=== PATIENT | male | born 1955 | race Caucasian/White ===

== ENCOUNTER 2019-09-25 11:20 | Outpatient (NON) | payer OTHER, SELFPAY ==
[2019-09-27 08:03] LABS: SARS-CoV-2 RNA PCR Positive
== END 2019-09-25 11:21 ==
PROVIDERS: PCP Family Medicine; Visit Provider Physician Assistant
DX: R50.9 Fever, unspecified (principal); U07.1 COVID-19
CPT/HCPCS: 87635; C9803; U0003

== ENCOUNTER 2020-06-19 08:39 | Outpatient (CLI) | payer OTHER, SELFPAY ==
--- NOTE | ~2020-06-19 | US_ITS ---
EXAMINATION: US carotid duplex BI DATE: 06/19/2020 09:23 INDICATION: Vertigo, dizziness and giddiness TECHNIQUE: Grayscale, color Doppler, and pulsed Doppler images of the cervical carotid arteries were obtained. The degree of vessel stenosis is placed in one of the following categories: normal, <50%, 5 0-69%, >=70% but less than near-occlusion, near-occlusion, or total occlusion. Note that percent sten osis relative to normal distal artery lumen diameter is indirectly measured from velocity measurement s as described by Zack, et al. Radiology 2003; [id number]. COMPARISON: None. FINDINGS: RIGHT: The right common carotid artery (CCA) peak systolic velocity (PSV) is 109 cm/s. The right internal ca rotid artery (ICA) PSV is 126 cm/s. The right ICA end-diastolic velocity (EDV) is 24 cm/s. The right ICA/CCA PSV ratio is 1.2. Grayscale and color Doppler images yield an estimate of 50-69% diameter red uction from plaque in the ICA. The external carotid artery (ECA) PSV is 97 cm/s. There is antegrade f low in the right vertebral artery. LEFT: The left CCA PSV is 132 cm/s. The left ICA PSV is 81 cm/s. The left ICA EDV is 17 cm/s. The left ICA/ CCA PSV ratio is 0.6. Grayscale and color Doppler images yield an estimate of <50% diameter reduction from plaque in the ICA. The ECA PSV is 100 cm/s. There is antegrade flow in the left vertebral arter y. IMPRESSION: 1. 50-69% stenosis in the right internal carotid artery. 2. <50% stenosis in the left internal carotid artery. Reviewed, dictated and finalized at location A. MERCHANT
== END 2020-06-19 08:40 | disposition home or self-care (01) ==
PROVIDERS: PCP Family Medicine; Visit Provider Family Medicine
DX: R42 Dizziness and giddiness (principal); I10 Essential (primary) hypertension; I65.23 Occlusion and stenosis of bilateral carotid arteries
CPT/HCPCS: 93880

== ENCOUNTER → 2020-09-04 08:53 | Outpatient (CLI) | payer OTHER, SELFPAY ==
--- NOTE | ~2020-09-04 | XR_ITS ---
EXAMINATION: XR hand LT min 3V EXAM DATE: 09/04/2020 09:54 INDICATION: M79.642 - Pain in left hand. Shooting pain and swelling in 2nd, 3rd, and 4th digits of L T hand x 2 months. no inj. TECHNIQUE: Left hand frontal, lateral and oblique projections obtained and reviewed. There is no carmen or study for comparison. FINDINGS: Left metacarpal bones are unremarkable. There is severe triscaphe, moderate 1st carpometac arpal, 2nd and 3rd metacarpophalangeal joint primary osteoarthritis. Otherwise mild polyarticular pr imary osteoarthritis. There are no bony erosions identified. There are no acute fractures or dislocat ions identified. There is no subcutaneous gas. The soft tissue is unremarkable. There are no radi opaque foreign bodies. IMPRESSION: Polyarticular osteoarthritis. Reviewed, dictated and finalized at location A.
== END ==
PROVIDERS: Visit Provider Physician Assistant
DX: M19.042 Primary osteoarthritis, left hand (principal)
CPT/HCPCS: 73130

== ENCOUNTER 2020-09-11 07:30 | Outpatient (CLI) | payer OTHER, SELFPAY ==
--- NOTE | 2020-09-25 19:13 | WPDHOMESLEEP ---
Sleep Study - Home Unattended Date of Study: 09/11/20 Ordering Provider: Tri Estrada MD Interpreting Provider: Tri Estrada MD Home Sleep Study Type: Apnea Link Air Height: 1.73 m Weight: 94.347 kg Body Mass Index: 31.6 Neck Circumference (inches): 17 [place]: 0 Reason for Sleep Study Snoring, non restorative sleep Sleep History J Carlos Cortes is a 65-year-old manwith a history of poor quality sleep. He is on treatment for depression which is under good control. He does not awaken feeling refreshed. He is told by others that he snores at night. His [place] is 0 and he does not always feel tired in the day but he usually does not feel good when he wakes up. He had COVID in August and lost 30 lb. He has gained a little bit of that back 10 lb and feels better not being as heavy. His snoring does not bother him. He denies waking at night with heartburn, belching or coughing. He does not awaken from sleep feeling short of breath. He constantly has trouble sleeping if he has a cold. He does not wake up gasping for breath at night. He does not have breathing problems at night observed by others. He does not sweat excessively at night. He rarely notices his heart pounding or beating irregularly at night. He does not fall asleep during the day, does not fall asleep involuntarily or while driving. He does not have loss of muscle tone with strong emotion. He rarely has daytime difficulties due to excessive sleepiness. He does not feel paralyzed on waking or falling asleep. He does not have vivid dreamlike scenes upon awakening or falling asleep. He does not feel afraid to go to sleep. He does not have nightmares. He does not remember his dream content. He rarely has racing thoughts. He frequently feels sad or depressed. He rarely has anxiety, rarely worries about things. He does not have muscular tension. He rarely notices parts of his body jerking. He does not kick at night. He rarely has crawling and aching feelings in his legs, rarely has any kind of leg pain at night. He does not have morning jaw pain. He does not grind his teeth during sleep. He is not bothered by pain during the day, is not awakened by pain at night. He rarely wakes up feeling stiff in the morning, rarely has sore achy muscles in the morning and really wakes up with pain in the spine. He has stomach problems, depression. Normal bedtime is not fixed. He goes to bed later on the weekend, 9:00 p.m.. It takes an hour and a half to fall asleep. He wakes up at 5 in the morning. He estimates gaining 4 or 5 hours of sleep overnight. He does not take naps. A short nap is not refreshing. He feels drowsy for 3 hours or longer after waking. He feels better in the afternoon compared to the morning. He rarely awakens feeling refreshed. [facility] Past Medical History Medical History Essential (primary) hypertension Major depressive disorder, single episode, unspecified Onychomycosis Tinea corporis Type 2 diabetes mellitus without complications Family History Family History Father Hypertension Family history of diabetes mellitus in first degree relative Family history of coronary artery disease Sibling Hypertension Family history of diabetes mellitus in first degree relative Social History Social History Social History: Single Smoking status: Never smoker Second hand tobacco smoke exposure: No Alcohol intake: never Substance use: never Substance use type: does not use Gender identity (if verbalized by the patient): Male Medications Home Medications Medication Instructions Recorded Confirmed Type atorvastatin 20 mg tablet 20 mg PO DAILY #90 tablet 02/17/20 09/04/20 Rx buspirone 5 mg tablet 5 mg PO BID #180 tablet 02/17/20 09/04/20 Rx famotidine 20 mg t
[2020-09-25 20:16] VITALS: BMI 31.6
== END 2020-09-11 07:31 | disposition home or self-care (01) ==
LOC: ANHCSM 07:30
PROVIDERS: Visit Provider Internal Medicine Critical Care Medicine
DX: G47.33 Obstructive sleep apnea (adult) (pediatric) (principal); G47.10 Hypersomnia, unspecified; I10 Essential (primary) hypertension; E11.9 Type 2 diabetes mellitus without complications; E66.9 Obesity, unspecified; Z68.31 Body mass index [BMI] 31.0-31.9, adult; Z79.899 Other long term (current) drug therapy
CPT/HCPCS: 95806

== ENCOUNTER 2020-12-24 09:01 | Outpatient (CLI) | payer OTHER, SELFPAY ==
--- NOTE | 2021-01-25 11:58 | WPDSLEEPSTUD ---
Sleep Study Date of Study: 12/24/20 Ordering Provider: Mateo Basurto APRN Interpreting Physician: Tri Estrada MD Sleep Study Type: CPAP Titration Height: 1.73 m Weight: 90.265 kg Body Mass Index: 30.2 Neck Circumference (inches): 16 [place]: 0 Reason for Sleep Study Home sleep test September 11, 2020 using ApneaLink shows at least mild obstructive sleep apnea, apnea-hypopnea index of 13, a mixture of central apneas 55% of the total and obstructive apneas 45% of the total with snoring and desaturation 83%. He has a medical comorbidity of hypertension, and presents for a CPAP titration in the sleep lab. Sleep History J Carlos Cortes is a 65-year-old manwith a history of poor quality sleep. He is on treatment for depression which is under good control. He does not awaken feeling refreshed. He is told by others that he snores at night. His [place] is 0 and he does not always feel tired in the day but he usually does not feel good when he wakes up. He had COVID in August and lost 30 lb. He has gained a little bit of that back 10 lb and feels better not being as heavy. His snoring does not bother him. He denies waking at night with heartburn, belching or coughing. He does not awaken from sleep feeling short of breath. He constantly has trouble sleeping if he has a cold. He does not wake up gasping for breath at night. He does not have breathing problems at night observed by others. He does not sweat excessively at night. He rarely notices his heart pounding or beating irregularly at night. He does not fall asleep during the day, does not fall asleep involuntarily or while driving. He does not have loss of muscle tone with strong emotion. He rarely has daytime difficulties due to excessive sleepiness. He does not feel paralyzed on waking or falling asleep. He does not have vivid dreamlike scenes upon awakening or falling asleep. He does not feel afraid to go to sleep. He does not have nightmares. He does not remember his dream content. He rarely has racing thoughts. He frequently feels sad or depressed. He rarely has anxiety, rarely worries about things. He does not have muscular tension. He rarely notices parts of his body jerking. He does not kick at night. He rarely has crawling and aching feelings in his legs, rarely has any kind of leg pain at night. He does not have morning jaw pain. He does not grind his teeth during sleep. He is not bothered by pain during the day, is not awakened by pain at night. He rarely wakes up feeling stiff in the morning, rarely has sore achy muscles in the morning and really wakes up with pain in the spine. He has stomach problems, depression. Normal bedtime is not fixed. He goes to bed later on the weekend, 9:00 p.m.. It takes an hour and a half to fall asleep. He wakes up at 5 in the morning. He estimates gaining 4 or 5 hours of sleep overnight. He does not take naps. A short nap is not refreshing. He feels drowsy for 3 hours or longer after waking. He feels better in the afternoon compared to the morning. He rarely awakens feeling refreshed. [facility] Past Medical History Medical History Essential (primary) hypertension Major depressive disorder, single episode, unspecified Onychomycosis Tinea corporis Type 2 diabetes mellitus without complications Family History Family History Father Hypertension Family history of diabetes mellitus in first degree relative Family history of coronary artery disease Sibling Hypertension Family history of diabetes mellitus in first degree relative Social History Social History Social History: Single Smoking status: Never smoker Second hand tobacco smoke exposure: No Alcohol intake: never Substance use: never Substance use type: does not use Gender identity (if verb
[2021-01-25 11:59] VITALS: BMI 30.2
== END 2020-12-25 06:41 | disposition home or self-care (01) ==
LOC: ANHCSM 09:06
PROVIDERS: Visit Provider Nurse Practitioner Family
DX: G47.33 Obstructive sleep apnea (adult) (pediatric) (principal); G25.81 Restless legs syndrome
CPT/HCPCS: 95811

== ENCOUNTER → 2022-11-07 09:08 | Outpatient (CLI) | payer MEDICARE, SELFPAY ==
--- NOTE | ~2022-11-07 | XR_ITS ---
XR knee RT 3V 11/07/2022 09:51 Indication: Right knee pain Procedure: 3 views right knee Comparison: No prior studies for comparison. Findings: No fracture, subluxation or dislocation. No significant joint effusion. No foreign bodies. There is extensive atherosclerosis. No joint space narrowing. Impression: 1: No significant bone or joint abnormality. Reviewed, dictated and finalized at location [] Impression: 1: No significant bone or joint abnormality.
--- NOTE | ~2022-11-07 | XR_ITS ---
XR knee LT 3V 11/07/2022 09:51 INDICATION: Left knee pain PROCEDURE: 3 views left knee COMPARISON: No prior studies for comparison. FINDINGS: Fracture, dislocation or subluxation is not identified. No significant joint effusion. No j oint space narrowing. The soft tissues appear within normal limits. No foreign bodies are identified . There is atherosclerosis. IMPRESSION: 1: NO ACUTE BONE OR JOINT ABNORMALITY IDENTIFIED. Reviewed, dictated and finalized at location []
== END ==
PROVIDERS: PCP Physician Assistant; Visit Provider Physician Assistant
DX: M25.561 Pain in right knee (principal); M25.562 Pain in left knee
CPT/HCPCS: 73562

== ENCOUNTER 2023-01-04 14:30 | Outpatient (RCR) | payer MEDICARE, SELFPAY | END 2023-03-06 13:25 | disposition home or self-care (01) | LOC: ANHDMC 14:30 | PROVIDERS: PCP Physician Assistant; Visit Provider Physician Assistant | DX: E11.65 Type 2 diabetes mellitus with hyperglycemia (principal); Z71.89 Other specified counseling | CPT/HCPCS: G0109 ==

== ENCOUNTER 2023-01-31 15:25 | Outpatient (CLI) | payer MEDICARE, SELFPAY ==
--- NOTE | ~2023-01-31 | CT_ITS ---
EXAMINATION: CT abdomen pelvis w con DATE: 01/31/2023 16:02 INDICATION: Right lower quadrant abdominal pain TECHNIQUE: Computed tomography (CT) of the abdomen and pelvis was performed with 100 mL Omnipaque-350 intravenous contrast. Automated exposure control and iterative reconstruction technique were employe d. The dose-length product was 1301.68 mGy-cm. COMPARISON: None FINDINGS: Large sliding-type hiatal hernia which includes a majority the stomach. There is compressive atelecta sis in the immediately adjacent medial aspect of the bilateral lower lobes. There is additional right middle lobe atelectasis along the anterior aspect of the right hemidiaphragm. No pneumonia, pulmonar y edema, pleural effusion or pneumothorax. Heart size is normal. No pericardial effusion. Calcified g allstone at the neck of the otherwise normal-appearing gallbladder. A couple of centimeters low atten uation subcentimeter cysts in the left hepatic lobe. Spleen, pancreas and bilateral adrenal glands ar e normal. Small cysts at the upper poles of both kidneys, the largest on the right measuring 1.5 cm. There are couple appendicoliths at the proximal aspect of the dilated appendix with prominent periapp endiceal inflammatory stranding consistent with acute appendicitis. There appear to be defects in the enhancing wall of the appendix both at the base where there is a small amount of extraluminal gas in the surrounding fat as well as near the tip of the appendix where there is an additional small amoun t of extraluminal gas. No organized abscess. There are a few scattered colonic diverticula without ad jacent inflammatory stranding to suggest diverticulitis. No bowel obstruction. Bladder is normal. No pathologically enlarged abdominal or pelvic lymphadenopathy. Moderate lumbar and lower thoracic spond ylosis with likely developmental anterior fusion at T11-T12. IMPRESSION: 1. Ruptured acute appendicitis with appendicolith at the base of the appendix and small amount of ext raluminal gas apparent mural defects at the base and tip of the appendix. No organized abscess. Dr. Sunitha mejia discussed these findings with Dr. Heck at 4:15 PM. 2. Large sliding-type hiatal hernia. 3. Cholelithiasis. Reviewed, dictated and finalized at location A. IMPRESSION: 1. Ruptured acute appendicitis with appendicolith at the base of the appendix a nd small amount of extraluminal gas apparent mural defects at the base and tip of the appendix. No organized abscess. Dr. Escamilla discussed these findings wi th Dr. Heck at 4:15 PM. 2. Large sliding-type hiatal hernia. 3. Cholelithiasis.
== END 2023-01-31 15:26 | disposition home or self-care (01) ==
PROVIDERS: PCP Family Medicine; Visit Provider Family Medicine
DX: K80.20 Calculus of gallbladder without cholecystitis without obstruction (principal); K44.9 Diaphragmatic hernia without obstruction or gangrene; K35.32 Acute appendicitis with perforation, localized peritonitis, and gangrene, without abscess
CPT/HCPCS: 74177; Q9967

== ENCOUNTER 2023-01-31 16:36 | Inpatient (IN) | payer MEDICARE, SELFPAY ==
--- NOTE | ~2023-01-31 | XR_ITS ---
Portable chest x-ray Comparison: None Clinical History: Hypoxia Findings: Small bilateral pleural effusions are present with probable mild bibasilar pulmonary edema . Calcified left hilar lymph nodes are present. Cardiomediastinal silhouette is stable. Bones and sof t tissues are unremarkable. Impression: Small bilateral pleural effusions with probable mild bibasilar pulmonary edema. Calcified left hilar lymph nodes. Reviewed, dictated and finalized at [facility]. Impression: Small bilateral pleural effusions with probable mild bibasilar pulmonary edema. Calcified left hilar lymph nodes.
[2023-01-31 16:52] VITALS: BP 160/90; PULSE 113; RESP 18; TEMP 36.7; O2SAT 97
--- NOTE | 2023-01-31 17:23 | ED.ABDPAIN ---
HPI - Abdominal Pain General Chief Complaint: Abdominal Pain <KRISTINA Ramsey Last Filed: 01/31/23 18:27> Stated Complaint: perforated appendectomy from CT <KRISTINA Ramsey Last Filed: 01/31/23 18:27> Time Seen by Provider: 01/31/23 17:09 <KRISTINA Ramsey Last Filed: 01/31/23 18:27> Source: patient <KRISTINA Ramsey Last Filed: 01/31/23 18:27> Mode of arrival: ambulatory <KRISTINA Ramsey Last Filed: 01/31/23 18:27> Limitations: no limitations <KRISTINA Ramsey Last Filed: 01/31/23 18:27> History of Present Illness HPI narrative: This is a 67-year-old male that presents to the emergency department for abdominal pain ongoing over the last 4 days. Associated with fevers, nausea and diarrhea. He was seen by his primary provider today who ordered an outpatient CT scan. This showed acute appendicitis. Patient denies vomiting or dysuria. <KRISTINA Ramsey Last Filed: 01/31/23 18:27> Related Data Home Medications: Home Medications Medication Instructions Recorded Confirmed buspirone 7.5 mg tablet 7.5 mg PO TID 01/31/23 01/31/23 famotidine 20 mg tablet (Pepcid) 20 mg PO QHS 01/31/23 01/31/23 gabapentin 300 mg capsule 1,200 mg PO QHS 01/31/23 01/31/23 lisinopril 10 mg tablet 10 mg PO DAILY 01/31/23 01/31/23 melatonin 10 mg tablet 10 mg PO HS 01/31/23 01/31/23 omeprazole 20 mg capsule,delayed 20 mg PO DAILY 01/31/23 01/31/23 release ropinirole 2 mg tablet 2 mg PO QHS 01/31/23 01/31/23 sertraline 100 mg tablet 150 mg PO DAILY 01/31/23 01/31/23 trazodone 50 mg tablet 25 mg PO QHS 01/31/23 01/31/23 <KRISTINA Ramsey Last Filed: 01/31/23 18:27> Allergies/Adverse Reactions: Allergies Allergy/AdvReac Type Severity Reaction Status Date / Time No Known Allergies Allergy Verified 01/31/23 16:36 <Radha Gaines PA-C - Last Filed: 01/31/23 18:27> Review of Systems Review of Systems: CONSTITUTIONAL: Denies fever GASTROINTESTINAL: Reports abdominal pain, nausea and diarrhea. Denies vomiting GENITOURINARY: Denies dysuria <Radha Gaines PA-C - Last Filed: 01/31/23 18:27> All systems reviewed & are unremarkable except as noted in HPI and below <Radha Gaines PA-C - Last Filed: 01/31/23 18:27> [facility] Past Medical History Medical History: Medical History (Updated 01/31/23 @ 19:48 by Mary Kate Jane PA-C) Anxiety Essential (primary) hypertension Major depressive disorder, single episode, unspecified Mixed hyperlipidemia Obesity Obstructive sleep apnea (11/2020) Restless legs syndrome Type 2 diabetes mellitus without complications <Radha Gaines PA-C - Last Filed: 01/31/23 18:27> Surgical History Surgical History: Surgical History No history of previous surgery <Radha Gaines PA-C - Last Filed: 01/31/23 18:27> Family History Family History: Family History Father Hypertension Family history of diabetes mellitus in first degree relative Family history of coronary artery disease Sibling Hypertension Family history of diabetes mellitus in first degree relative <Radha Gaines PA-C - Last Filed: 01/31/23 18:27> Social History Social History: Social History (Updated 01/31/23 @ 19:46 by Mary Kate Jane PA-C) Social History: Surrogate medical decision maker: Angelic Alvarez, sibling. Code status: Full code. Smoking status: Never smoker Second hand tobacco smoke exposure: No Alcohol intake: former Alcohol use details: No alcohol in the last 10 to 15 years. Substance use: never Substance use type: does not use Lack of Transportation: No Lack of Food: Sometimes True Current Housing: I Have Housing Concerned About Future Housing: No Difficulty Paying Gas/Electric Bills: YES Difficulty Paying for Meds: YES Currently Une
[2023-01-31 17:36] VITALS: BP 154/80; PULSE 76; RESP 18; TEMP 37.1; O2SAT 96
[2023-01-31 17:49] LABS: Basophils Absolute Auto 0.1 K/mm3 (0.0-0.1); Basophils Percent Auto 0.3 % (0.2-1.2); Eosinophils Absolute Auto 0.1 K/mm3 (0-0.3); Eosinophils Percent Auto 0.4 % (0-4.4); Hematocrit 43.1 % (42.0-52.0); Hemoglobin 14.3 g/dL (14.0-18.0); Immature Granulocyte Absolute 0.07 K/mm3 (0.00-0.031); Immature Granulocyte Percent A 0.5 % (0-0.5); Lymphocytes Absolute Auto 1.52 K/mm3 (0.9-3.2); Lymphocytes Percent Auto 9.9 % (18.3-44.2); Mean Corpuscular HGB Conc 33.2 g/dl (32-36); Mean Corpuscular Hemoglobin 30.2 pg (26-34); Mean Corpuscular Volume 91.1 fl (80-100); Mean Platelet Volume 10.2 fl (7.4-10.4); Monocytes Absolute Auto 1.2 K/mm3 (0.1-0.6); Monocytes Percent Auto 7.6 % (2.6-8.5); Neutrophils Absolute Auto 12.5 K/mm3 (1.3-6.7); Neutrophils Percent Auto 81.3 % (45.5-73.1); Platelet Count Result 277 k/mm3 (150-375); Red Blood Count 4.73 M/mm3 (4.6-6.20); Red Cell Distribution Width 13.5 % (11.5-14.5); White Blood Count 15.4 K/mm3 (4.5-10.0)
[2023-01-31] MEDS: SODIUM CHLORIDE 0.9% IV 1,000 ML 999 ML IV CONT (17:55)
[2023-01-31] MEDS: PIPERACILLN/TAZ 3.375GM/NS50ML 3.375 GM/50 ML BAG IVPB ×2 (17:56→23:28)
[2023-01-31 18:00] LABS: Alanine Aminotransferase 30 U/L (6-50); Albumin Level 4.6 g/dL (3.5-5.1); Alkaline Phosphatase 101 U/L (38-126); Anion Gap 15 mmol/L (8-16); Aspartate Amino Transferase 30 U/L (17-59); Bilirubin,Total 0.9 mg/dL (0.2-1.3); Blood Urea Nitrogen 19 mg/dL (9-20); Calcium 9.6 mg/dL (8.4-10.2); Carbon Dioxide 21 mmol/L (22-30); Chloride 99 mmol/L (98-107); Estimated CRCL calculation 70 ml/min; Estimated Glomerular Filt Rate > 60; Glucose 160 mg/dL (65-110); Lipase 36 U/L (23-300); Potassium 3.8 mmol/L (3.4-5.0); Sodium 135 mmol/L (137-145)
[2023-01-31 18:02] LABS: Lactic Acid Reflex 1.2 mmol/L (0.7-2.0)
--- NOTE | 2023-01-31 19:40 | PM.IMHP ---
H&P: HPI History of Present Illness Date/Time: 01/31/23 17:45 Chief Complaint: Perforated appendicitis. Narrative: This is a pleasant 67-year-old male with type 2 diabetes mellitus, hypertension, and anxiety who presented to the emergency department from Radiology after he was found to have evidence of perforated appendicitis on CT scan. The patient provides the following history. afternoon he has some mild abdominal discomfort after eating but that passed and he felt okay later that day and on Monday. Monday however the abdominal discomfort returned and has become increasingly worse since that time. He describes a sharp and shooting pain diffusely throughout the lower abdomen, worse with movement. Associated symptoms include a temperature up to 101?, nausea, and decreased appetite. He has only had a very small, hard bowel movement within the last few days which is unusual for him. He was sent for an outpatient CT which showed ruptured acute appendicitis with appendicolith with a small amount of extraluminal gas. ED provider spoke with the on-call surgeon at this time they requested he be admitted for IV antibiotics and bowel rest. At the time my evaluation he is feeling a bit better after receiving IV ibuprofen. Review of Systems Review of Systems: Twelve systems were reviewed. He has had a fever as above. No cold or flu symptoms. No chest pain or shortness of breath. He has not vomited. No blood or mucus in the stool. He believes his diabetes is well controlled. He admits that he does not check his glucose but maybe once a month. No blurry vision, polydipsia, or polyuria. Except as documented, all other systems were reviewed and are negative. [facility] Past Medical History Medical History (Updated 01/31/23 @ 19:48 by Mary Kate Jane PA-C) Anxiety Essential (primary) hypertension Major depressive disorder, single episode, unspecified Mixed hyperlipidemia Obesity Obstructive sleep apnea (11/2020) Restless legs syndrome Type 2 diabetes mellitus without complications Surgical History Surgical History No history of previous surgery Family History Family History Father Hypertension Family history of diabetes mellitus in first degree relative Family history of coronary artery disease Sibling Hypertension Family history of diabetes mellitus in first degree relative Social History Social History (Updated 01/31/23 @ 19:46 by Mary Kate Jane PA-C) Social History: Surrogate medical decision maker: Angelic Alvarez, sibling. Code status: Full code. Smoking status: Never smoker Second hand tobacco smoke exposure: No Alcohol intake: never Alcohol use details: No alcohol in the last 10 to 15 years. Substance use: never Substance use type: does not use Additional living arrangements comments: Single. Lives in his own home. Additional occupation/education comments: Retired. Meds Home Medications and Allergies Home Medications Medication Instructions Recorded Confirmed Type buspirone 5 mg tablet 5 mg PO BID #180 tabs 02/17/20 01/31/23 Rx ropinirole 0.5 mg tablet 0.5 mg PO .QHS #90 tabs 02/17/20 01/31/23 Rx sertraline 100 mg tablet 100 mg PO DAILY #90 tabs 02/17/20 01/31/23 Rx sertraline 50 mg tablet 50 mg PO DAILY #90 tabs 02/17/20 01/31/23 Rx blood sugar diagnostic (Blood #100 ea 04/26/21 01/31/23 Rx Glucose Test strips) famotidine 20 mg tablet (Pepcid) 20 mg PO DAILY #90 tabs 01/24/22 01/31/23 Rx metoprolol succinate 50 mg 25 mg PO DAILY #45 tabs 04/15/22 01/31/23 Rx tablet,extended release 24 hr gabapentin 300 mg capsule 1,200 mg PO DAILY #360 caps 05/06/22 01/31/23 Rx atorvastatin 20 mg tablet See Rx Instructions .Route 06/06/22 01/31/23 Rx .COMPLEX #90 tabs lisinopril 10 mg tablet See Rx Instructions .Route 08/15/22 01/31/23 Rx .COMPLEX #90 tabs glipizi
[2023-01-31 20:00] VITALS: BP 146/89; PULSE 95; RESP 18; TEMP 36.6; O2SAT 94
[2023-01-31] MEDS: IBUPROFEN IV 400 MG in SODIUM CHLORIDE 0.9% IV 100 ML 200 MG IVPB (20:36)
[2023-01-31] MEDS: SODIUM CHLORIDE 0.9% IV 1,000 ML 100 ML IV CONT (20:37)
--- NOTE | 2023-01-31 21:28 | ADMGEN ---
This patient, J Carlos Cortes, was admitted to 2 Medical Room 240-01. Patient/family oriented to hospital policies and general routines including ID bracelet, bed and alarms, visiting hours, pain management, procedures, bathroom and other care routines, personal items, smoking policy, room service/diet, and visiting hours. Information on how to activate the Rapid Response Team has been discussed. Patient/Family are encouraged to report perceived risks to care and to ask questions if they do not understand what they are told or what they should do.
[2023-01-31 21:50] LABS: Glucose Point of Care 120 mg/dl (65-105)
[2023-01-31 22:55] LABS: Appearance Urine Clear (Clear); Bilirubin Urine Negative (Negative); Blood Urine Negative (Negative); Color Urine Yellow (Yellow); Glucose Urine UA 3+ mg/dL (Negative); Ketones Urine 1+ mg/dL (Negative); Nitrate Urine Negative (Negative); Protein Urine 2+ mg/dL (Negative); Urobilinogen Urine 0.2 mg/dL (<2.0); pH Urine 5.5 (5.0-9.0)
[2023-01-31 22:56] LABS: Add Urine Microscopic? YES; Bacteria Urine None Seen /hpf; Leukocyte Esterase Ur Negative LEU/UL (Negative); Need Manual Microscopic Reviewed; Non Pathogenic Casts 0-2; RBC Urine 0-2 /hpf (0-2); Specific Grav Ur 1.085 (1.001-1.035); Squamous Epithelial Cell Urine None seen /hpf (Few); WBC Urine 0-5 /hpf
[2023-01-31] MEDS: DOXEPIN HCL 25 MG CAPSULE 100 MG PO (23:27)
[2023-01-31] MEDS: traZODone HCL 25 MG TABLET PO (23:28)
[2023-01-31] MEDS: GABAPENTIN 400 MG CAPSULE 1200 MG PO (23:28)
[2023-01-31] MEDS: MELATONIN 5 MG TABLET 10 MG PO (23:28)
[2023-01-31] MEDS: rOPINIRole HCL 1 MG TABLET 2 MG PO (23:28)
[2023-01-31] MEDS: FAMOTIDINE 20 MG TABLET PO (23:28)
[2023-02-01] VITALS (17 sets, daily range): BP systolic 111–144; BP diastolic 62–87; PULSE 80–102; RESP 16–28; TEMP 35.8–37.7; O2SAT 85–100
[2023-02-01] MEDS: PIPERACILLN/TAZ 3.375GM/NS50ML 3.375 GM/50 ML BAG IVPB ×3 (05:10→17:04)
[2023-02-01] MEDS: SODIUM CHLORIDE 0.9% IV 1,000 ML 100 ML IV CONT ×2 (05:11→22:00)
[2023-02-01] MEDS: HYDROcodone/acetaminophen (*CRX) 5-325 MG TABLET 1 TAB PO (05:13)
[2023-02-01 05:41] LABS: Basophils Percent Auto 0.3 % (0.2-1.2); Eosinophils Absolute Auto 0.2 K/mm3 (0-0.3); Eosinophils Percent Auto 1.7 % (0-4.4); Hematocrit 36.8 % (42.0-52.0); Immature Granulocyte Absolute 0.05 K/mm3 (0.00-0.031); Immature Granulocyte Percent A 0.5 % (0-0.5); Lymphocytes Absolute Auto 1.25 K/mm3 (0.9-3.2); Lymphocytes Percent Auto 11.3 % (18.3-44.2); Mean Corpuscular HGB Conc 32.6 g/dl (32-36); Mean Corpuscular Hemoglobin 30.2 pg (26-34); Mean Corpuscular Volume 92.5 fl (80-100); Mean Platelet Volume 9.9 fl (7.4-10.4); Monocytes Absolute Auto 0.9 K/mm3 (0.1-0.6); Monocytes Percent Auto 8.2 % (2.6-8.5); Neutrophils Absolute Auto 8.7 K/mm3 (1.3-6.7); Platelet Count Result 225 k/mm3 (150-375); Red Blood Count 3.98 M/mm3 (4.6-6.20); Red Cell Distribution Width 13.4 % (11.5-14.5); White Blood Count 11.1 K/mm3 (4.5-10.0)
[2023-02-01 05:55] LABS: Anion Gap 11 mmol/L (8-16); Blood Urea Nitrogen 18 mg/dL (9-20); Calcium 8.4 mg/dL (8.4-10.2); Carbon Dioxide 23 mmol/L (22-30); Chloride 105 mmol/L (98-107); Estimated CRCL calculation 77 ml/min; Estimated Glomerular Filt Rate > 60; Glucose 120 mg/dL (65-110); Magnesium 2.4 mg/dL (1.6-2.3); Potassium 3.9 mmol/L (3.4-5.0); Sodium 139 mmol/L (137-145)
--- NOTE | 2023-02-01 07:37 | PM.CNGS ---
Assessment and Plan Assessment and plan (1) Acute appendicitis: Qualifiers: Acute appendicitis type: with localized peritonitis Appendicitis abscess presence: without abscess Appendicitis gangrene presence: without gangrene Appendicitis perforation presence: with perforation Qualified Code(s): K35.32 - Acute appendicitis with perforation, localized peritonitis, and gangrene, without abscess Code(s): K35.80 - Unspecified acute appendicitis Status: Acute Assessment and Plan: I have reviewed the CT and discussed the findings with the patient. He has evidence of acute perforated appendicitis. I discussed that treatment options can include antibiotics alone verses antibiotics and surgery. Surgery can be more complicated in the setting of acute appendicitis especially when symptoms have been going on for 3-4 days already. Antibiotics can be successful but there are chances of recurrent appendicitis. Patient would like to proceed with surgery. I have recommended laparoscopic appendectomy, possible open. I discussed the procedure, risks, benefits, and alternatives. Questions were answered. Patient is on IV antibiotics and will continue these preoperatively. (2) Type 2 diabetes mellitus: Code(s): E11.9 - Type 2 diabetes mellitus without complications Status: Acute (3) Obstructive sleep apnea: Onset Date: 11/2020 Code(s): G47.33 - Obstructive sleep apnea (adult) (pediatric) Status: Acute (4) Essential (primary) hypertension: Code(s): I10 - Essential (primary) hypertension Status: Acute History of Present Illness Consult details Consult date: 02/01/23 Reason for consult: other (Acute appendicitis) Narrative: This is a 67-year-old man who I am asked to see for acute appendicitis. The patient presented to the emergency department yesterday with abdominal pain that started 3 days prior. He began experiencing lower abdominal pain all the way across his abdomen. He was experiencing fevers on Monday. He denies any nausea or vomiting. He has never had any symptoms like this in the past. He had presented to his primary care physician's office 1st [address] a [address] was done as an outpatient which showed evidence of acute perforated appendicitis. He was then referred over to the emergency department for further treatment. In the emergency department he was noted to have an elevated white blood count. Review of Systems Review of Systems: All systems reviewed & are unremarkable except as noted in HPI and below Eyes: Eyes: Denies change in vision ENT: Denies hearing loss, Denies neck pain and Denies sore throat Cardiovascular: Cardiovascular: Denies chest pain and Denies dyspnea Respiratory: Respiratory: Denies cough, Denies dyspnea and Denies wheezing Gastrointestinal: Gastrointestinal: Reports as per HPI Genitourinary: Genitourinary: Denies hematuria and Denies dysuria Musculoskeletal: Musculoskeletal: Denies arthralgias, Denies joint swelling and Denies neck pain Allergic/Immunologic: Allergic/Immunologic: Denies wheezing [facility] Past Medical History Medical History Anxiety Essential (primary) hypertension Major depressive disorder, single episode, unspecified Mixed hyperlipidemia Obesity Obstructive sleep apnea (11/2020) Restless legs syndrome Type 2 diabetes mellitus without complications Surgical History Surgical History No history of previous surgery Family History Family History Father Hypertension Family history of diabetes mellitus in first degree relative Family history of coronary artery disease Sibling Hypertension Family history of diabetes mellitus in first degree relative Social History Social History Social History
[2023-02-01 08:05] LABS: Glucose Point of Care 113 mg/dl (65-105)
[2023-02-01] MEDS: LACTATED RINGERS 1,000 ML 30 ML IV CONT ×2 (08:50→10:31)
--- NOTE | 2023-02-01 09:10 | WPDANESEPPF ---
Anes - Initial Pre Proc Eval Procedure: Operation Date: 02/01/23 09:30 Proposed Procedures p Laparoscopic Appendectomy - Perry Duenas DO Date/Time: 02/01/23 09:10 Surgeon: Callum Cline MD Pre Op Diagnosis: Acute Appendicitis Patient Data Age: 67 Gender: M Height: 1.73 m Weight: 97.8 kg Last Vital Signs Temp 36.6 C 02/01/23 08:00 Pulse 82 02/01/23 08:00 Resp 18 02/01/23 08:00 BP 128/62 02/01/23 08:00 Pulse Ox 95 02/01/23 08:00 O2 Del Method Room Air 01/31/23 22:00 Allergies Allergy/AdvReac Type Severity Reaction Status Date / Time No Known Allergies Allergy Verified 01/31/23 16:36 Home Medications Medication Instructions Recorded Confirmed Type metoprolol succinate 50 mg 25 mg PO DAILY #45 tabs 04/15/22 01/31/23 Rx tablet,extended release 24 hr glipizide 5 mg tablet, extended 5 mg PO DAILY #90 tabs 09/30/22 01/31/23 Rx release 24 hr dapagliflozin propanediol 10 mg 10 mg PO QAM #30 tabs 11/14/22 01/31/23 Rx tablet (Farxiga) meloxicam 15 mg tablet 15 mg PO DAILY #30 tabs 12/12/22 01/31/23 Rx doxepin 100 mg capsule 100 mg PO QHS #90 caps 01/19/23 01/31/23 Rx loratadine 10 mg tablet 10 mg PO DAILY #90 tabs 01/20/23 01/31/23 Rx montelukast 10 mg tablet 10 mg PO DAILY #90 tabs 01/20/23 01/31/23 Rx buspirone 7.5 mg tablet 7.5 mg PO TID 01/31/23 01/31/23 History famotidine 20 mg tablet (Pepcid) 20 mg PO QHS 01/31/23 01/31/23 History gabapentin 300 mg capsule 1,200 mg PO QHS 01/31/23 01/31/23 History lisinopril 10 mg tablet 10 mg PO DAILY 01/31/23 01/31/23 History melatonin 10 mg tablet 10 mg PO HS 01/31/23 01/31/23 History omeprazole 20 mg capsule,delayed 20 mg PO DAILY 01/31/23 01/31/23 History release ropinirole 2 mg tablet 2 mg PO QHS 01/31/23 01/31/23 History sertraline 100 mg tablet 150 mg PO DAILY 01/31/23 01/31/23 History trazodone 50 mg tablet 25 mg PO QHS 01/31/23 01/31/23 History Laboratory Tests 01/31/23 01/31/23 01/31/23 17:26 17:28 21:48 WBC 15.4 H K/mm3 (4.5-10.0) RBC 4.73 M/mm3 (4.6-6.20) Hgb 14.3 g/dL (14.0-18.0) Hct 43.1 % (42.0-52.0) MCV 91.1 fl (80-100) MCH 30.2 pg (26-34) MCHC 33.2 g/dl (32-36) RDW 13.5 % (11.5-14.5) Plt Count 277 k/mm3 (150-375) MPV 10.2 fl (7.4-10.4) Immature Gran % (Auto) 0.5 % (0-0.5) Neut % (Auto) 81.3 H % (45.5-73.1) Lymph % (Auto) 9.9 L % (18.3-44.2) [place] % (Auto) 7.6 % (2.6-8.5) Eos % (Auto) 0.4 % (0-4.4) Baso % (Auto) 0.3 % (0.2-1.2) Lymph # (Auto) 1.52 K/mm3 (0.9-3.2) [place] # (Auto) 1.2 H K/mm3 (0.1-0.6) Eos # (Auto) 0.1 K/mm3 (0-0.3) Baso # (Auto) 0.1 K/mm3 (0.0-0.1) Abs Immat Gran (auto) 0.07 H K/mm3 (0.00-0.031) Absolute Neuts (auto) 12.5 H K/mm3 (1.3-6.7) Absolute Nucleated RBC 0.0 K/mm3 (0.0-0.012) Nucleated RBC % 0.0 % (0.0-0.2) Sodium 135 L mmol/L (137-145) Potassium 3.8 mmol/L (3.4-5.0) Chloride 99 mmol/L (98-107) Carbon Dioxide 21 L mmol/L (22-30) Anion Gap 15 mmol/L (8-16) BUN 19 mg/dL (9-20) Creatinine 1.00 mg/dL (0.7-1.3) Estim Creat Clear Calc 70 ml/min Estimated GFR > 60 (59 - ) Glucose 160 H mg/dL (65-110) POC Capillary Glucose 120 H mg/dl (65-105) Lactic Acid 1.2 mmol/L (0.7-2.0) Calcium 9.6 mg/dL (8.4-10.2) Magnesium Total Bilirubin 0.9 mg/dL (0.2-1.3) AST 30 U/L (17-59) ALT 30 U/L (6-50) Alkaline Phosphatase 101 U/L (38-126) Total Protein 9.0 H g/dL (6.3-8.2) Albumin 4.6 g/dL (3.5-5.1) Lipase 36 U/L (23-300) Urine Color Urine Appearance
--- NOTE | 2023-02-01 09:13 | PM.IMPN ---
Progress Note: A&P Assessment and Plan (1) Acute appendicitis: Qualifiers: Acute appendicitis type: with localized peritonitis Appendicitis abscess presence: without abscess Appendicitis gangrene presence: without gangrene Appendicitis perforation presence: with perforation Qualified Code(s): K35.32 - Acute appendicitis with perforation, localized peritonitis, and gangrene, without abscess Code(s): K35.80 - Unspecified acute appendicitis Status: Acute Assessment and Plan: CT shows acute appendicitis with concerns for perforation Surgery consulted and rec's appreciated Started on IV zosyn POD 0 for lap appy with drain placement Continue with post-operative care (2) Type 2 diabetes mellitus: Code(s): E11.9 - Type 2 diabetes mellitus without complications Status: Acute Assessment and Plan: Hgb A1C 01/12/23 was 7.0 On empagliflozin and glipizide Ac/Hs accu checks SSI as needed (3) Essential (primary) hypertension: Code(s): I10 - Essential (primary) hypertension Status: Acute Assessment and Plan: Blood pressures reviewed and are stable SBP 130s-140s Home agents were resumed at admission (4) Mixed hyperlipidemia: Code(s): E78.2 - Mixed hyperlipidemia Status: Acute (5) Depression with anxiety: Code(s): F41.8 - Other specified anxiety disorders Status: Acute Assessment and Plan: Stable Continue home agents (6) Obstructive sleep apnea: Onset Date: 11/2020 Code(s): G47.33 - Obstructive sleep apnea (adult) (pediatric) Status: Acute Assessment and Plan: Autotitration home setting Cpap ordered (7) Urinary retention: Code(s): R33.9 - Retention of urine, unspecified Status: Acute Assessment and Plan: inability to void post-operatively failed intermittent straight cath Nixon catheter with coude placed Will give flomax as well Attempt void trial tomorrow Plan Recent lipid panel form 08/2022 with elevated LDL and low HDL. I do not see a statin ordered on home medications. Will inquire with patient. Subjective Date/time seen: 02/01/23 09:13 Interval history: HPI obtained from chart, This is a pleasant 67-year-old male with type 2 diabetes mellitus, hypertension, and anxiety who presented to the emergency department from Radiology after he was found to have evidence of perforated appendicitis on CT scan. The patient provides the following history. afternoon he has some mild abdominal discomfort after eating but that passed and he felt okay later that day and on Monday. Monday however the abdominal discomfort returned and has become increasingly worse since that time. He describes a sharp and shooting pain diffusely throughout the lower abdomen, worse with movement. Associated symptoms include a temperature up to 101?, nausea, and decreased appetite. He has only had a very small, hard bowel movement within the last few days which is unusual for him. He was sent for an outpatient CT which showed ruptured acute appendicitis with appendicolith with a small amount of extraluminal gas. ED provider spoke with the on-call surgeon at this time they requested he be admitted for IV antibiotics and bowel rest. At the time my evaluation he is feeling a bit better after receiving IV ibuprofen. 02/01: Patient seen this evening after his laparoscopic appendectomy. He is up in the chair and does not appear in any acute distress. He says that he does have some abdominal tenderness but he feels like his p.r.n. pain medications are helping. He denies nausea and is asking to drink water. Immediately postop he was unable to void. PACU was unable to straight cath him so a coude Nixon catheter was placed upon arrival to the medicine floor. Will keep Nixon for 24 hours and start him on Flomax. Plan to attempt a void trial the neck is 1-2 days. Abdominal incisions are well approximated and open
[2023-02-01] MEDS: IBUPROFEN IV 800 MG/200 ML 800 MG/200 ML BAG 400 MG IVPB (10:07)
--- NOTE | 2023-02-01 10:15 | W.PM.PROC2 ---
Procedure Note - Detailed Date of Procedure 02/01/23 Pre-op Diagnosis Acute Appendicitis Post-op Diagnosis Other (Perforated acute appendicitis with abscess) Procedure Performed 1. Laparoscopic appendectomy 2. Laparoscopic drainage of intra-abdominal abscess Surgeon Perry Duenas, DO Anesthesia General and Local (0.5% bupivicaine with epinephrine) Indications This is a 67-year-old man who presented to the emergency department yesterday with lower abdominal pain that started 3 days prior. He also began experiencing fevers 2 days prior to presentation. His pain continued to worsen, and he was seen by his PCP yesterday morning. A CT was done as an outpatient and this showed evidence of acute perforated appendicitis and he was then sent directly to the emergency department. He was started on IV Zosyn and was admitted to the hospital. Discussions were made with the patient about treatment options and decision was made to proceed with laparoscopic appendectomy, possible open. Findings Laparoscopic appendectomy was performed. The appendix appeared to be perforated and there was an abscess between the omentum, ascending colon, and appendix. The abscess was drained using the suction fine arts teacher. The base of the appendix appeared where the perforation was located. I was able to identify a small remnant of the base of the appendix and fire the stapler between this and the cecum. The appendix was removed and sent to the lab for pathology. I then irrigated the abdomen with 2 L of sterile saline. Decision was made to place a 19 round Gerald drain within the right lower quadrant. Description of Procedure Procedure as well as risks, benefits, and alternatives were explained to the patient. The patient agreed to proceed. Written consent was obtained and placed in chart prior to procedure. The patient was brought back to surgical suite. He was placed supine on operating table. Time-out was done to confirm the patient and procedure. The patient was then intubated by the Anesthesia Department. His abdomen was prepped and draped in sterile fashion using chlorhexidine prep. A 5 mm incision was made just to the left of the patient's umbilicus and a 5 mm Optiview trocar was advanced through the abdominal layers under direct visualization. Once inside the peritoneal cavity, carbon dioxide insufflation was used to create a pneumoperitoneum. The camera was inserted and the abdomen was inspected. No immediate abnormalities were identified. The patient was then placed in slight Trendelenburg position and rotated to the left. A 5 mm incision was made in the suprapubic region in midline and a 5 mm trocar was inserted under direct visualization. A 12 mm incision was made in the left lower quadrant and a 12 mm trocar was inserted under direct visualization. The right lower quadrant was carefully inspected. The cecum was identified and then this was traced back to the appendix. There was evidence of perforation at the base of the appendix and also evidence of abscess. The abscess was drained using a suction fine arts teacher. The appendix was identified and grasped at the mesoappendix and lifted anteriorly. Careful blunt dissection was carried out at the base of the appendix through the mesoappendix using a [place] grasper. An Endo-MICHELLE 45 mm blue load stapler was then advanced across the base of the appendix and clamped and fired. A white reload was then clamped across the mesoappendix and fired. This freed up our appendix completely. It was then placed in an EndoCatch bag and removed through the left lower quadrant port. The staple lines were then inspected. Hemostasis appeared adequate and the staple lines appeared secure. The area was then irrigated with sterile saline. The pelvis was then carefully inspected and irrigated with sterile saline as well and the remainder of the abdomen was carefully inspected. The patient was then flattened out in bed. One final inspection wa
[2023-02-01 10:57] LABS: Glucose Point of Care 160 mg/dl (65-105)
[2023-02-01] MEDS: PANTOPRAZOLE 40 MG TABLET PO (11:52)
[2023-02-01] MEDS: busPIRone HCL 2.5 MG TABLET 7.5 MG PO ×2 (11:52→17:03)
[2023-02-01] MEDS: SERTRALINE HCL 50 MG TABLET 150 MG PO (11:52)
[2023-02-01] MEDS: MELOXICAM 7.5 MG TABLET 15 MG PO (11:52)
[2023-02-01] MEDS: glipiZIDE XL 5 MG TABCR PO (11:53)
[2023-02-01] MEDS: METOPROLOL SUCCINATE EXT REL 25 MG TABCR PO (11:53)
[2023-02-01] MEDS: LORATADINE 10 MG TABLET PO (11:53)
[2023-02-01] MEDS: lisinopriL 10 MG TABLET PO (11:53)
[2023-02-01] MEDS: EMPAGLIFLOZIN 25 MG TABLET PO (11:53)
[2023-02-01] MEDS: MONTELUKAST SODIUM 10 MG TABLET PO (11:53)
[2023-02-01] MEDS: oxyCODONE HCL (*CRX) 5 MG TAB IR 10 MG PO ×2 (12:05→20:54)
[2023-02-01] MEDS: ENOXAPARIN 40 MG/0.4 ML SYRINGE SUB-Q (12:08)
[2023-02-01 12:31] LABS: Glucose Point of Care 169 mg/dl (65-105)
[2023-02-01] MEDS: LIDOCAINE HCL 2% GEL UROJET 10 ML PKG MUCOUS MEM (13:06)
[2023-02-01 17:19] LABS: Glucose Point of Care 213 mg/dl (65-105)
[2023-02-01] MEDS: INSULIN ASPART (*BKC) 100 UNITS/ML SUB-Q (17:25)
[2023-02-01] MEDS: FAMOTIDINE 20 MG TABLET PO (20:58)
[2023-02-01] MEDS: GABAPENTIN 400 MG CAPSULE 1200 MG PO (20:58)
[2023-02-01] MEDS: TAMSULOSIN HCL 0.4 MG CAPSULE PO (20:58)
[2023-02-01] MEDS: DOXEPIN HCL 25 MG CAPSULE 100 MG PO (20:59)
[2023-02-01] MEDS: MELATONIN 5 MG TABLET 10 MG PO (20:59)
[2023-02-01] MEDS: rOPINIRole HCL 1 MG TABLET 2 MG PO (20:59)
[2023-02-01] MEDS: traZODone HCL 25 MG TABLET PO (20:59)
[2023-02-01 21:50] LABS: Glucose Point of Care 161 mg/dl (65-105)
[2023-02-02] VITALS (11 sets, daily range): BP systolic 101–142; BP diastolic 62–70; PULSE 80–107; RESP 16–22; TEMP 36–36.6; O2SAT 90–97; BMI 33.2
[2023-02-02] MEDS: PIPERACILLN/TAZ 3.375GM/NS50ML 3.375 GM/50 ML BAG IVPB ×5 (00:06→23:58)
[2023-02-02] MEDS: oxyCODONE HCL (*CRX) 5 MG TAB IR 10 MG PO ×2 (04:27→09:01)
[2023-02-02 05:34] LABS: Hematocrit 32.1 % (42.0-52.0); Hemoglobin 10.2 g/dL (14.0-18.0); Mean Corpuscular HGB Conc 31.8 g/dl (32-36); Mean Corpuscular Hemoglobin 29.9 pg (26-34); Mean Corpuscular Volume 94.1 fl (80-100); Mean Platelet Volume 9.9 fl (7.4-10.4); Platelet Count Result 220 k/mm3 (150-375); Red Blood Count 3.41 M/mm3 (4.6-6.20); Red Cell Distribution Width 13.6 % (11.5-14.5); White Blood Count 11.8 K/mm3 (4.5-10.0)
[2023-02-02 05:45] LABS: Anion Gap 9 mmol/L (8-16); Blood Urea Nitrogen 16 mg/dL (9-20); Calcium 7.9 mg/dL (8.4-10.2); Carbon Dioxide 23 mmol/L (22-30); Chloride 106 mmol/L (98-107); Estimated CRCL calculation 70 ml/min; Estimated Glomerular Filt Rate > 60; Glucose 99 mg/dL (65-110); Potassium 4.3 mmol/L (3.4-5.0); Sodium 138 mmol/L (137-145)
--- NOTE | 2023-02-02 06:57 | PM.IMPN ---
Progress Note: A&P Assessment and Plan (1) Acute appendicitis: Qualifiers: Acute appendicitis type: with localized peritonitis Appendicitis abscess presence: without abscess Appendicitis gangrene presence: without gangrene Appendicitis perforation presence: with perforation Qualified Code(s): K35.32 - Acute appendicitis with perforation, localized peritonitis, and gangrene, without abscess Code(s): K35.80 - Unspecified acute appendicitis Status: Acute Assessment and Plan: CT shows acute appendicitis with concerns for perforation Surgery consulted and rec's appreciated Started on IV zosyn POD 1 for lap appy with drain placement Continue with post-operative care. Advance diet per surgery. Pain medications and bowel regimen ordered Patient is up to chair for meals IS ordered ANDER drain managed by surgery SCDs and Lovenox for DVT prophylaxis (2) Type 2 diabetes mellitus: Code(s): E11.9 - Type 2 diabetes mellitus without complications Status: Acute Assessment and Plan: Hgb A1C 01/12/23 was 7.0 On empagliflozin and glipizide Ac/Hs accu checks SSI as needed (3) Essential (primary) hypertension: Code(s): I10 - Essential (primary) hypertension Status: Acute Assessment and Plan: Blood pressures reviewed and are stable SBP 130s-140s Home agents were resumed at admission (4) Mixed hyperlipidemia: Code(s): E78.2 - Mixed hyperlipidemia Status: Acute Assessment and Plan: Lipid panel from 08/2022: Triglycerides 263 Total cholesterol 180 LDL 108 HDL 34 Looks like Atorvastatin was initially prescribed in 04/2022 but it does not appear to be an active med. Will discuss with patient today and re-start. Patient was under the understanding he was still taking this medication but it is not listed as an active home medication and looks like it was last prescribed in 04/2022. Will re-start. (5) Depression with anxiety: Code(s): F41.8 - Other specified anxiety disorders Status: Acute Assessment and Plan: Stable Continue home agents (6) Obstructive sleep apnea: Onset Date: 11/2020 Code(s): G47.33 - Obstructive sleep apnea (adult) (pediatric) Status: Acute Assessment and Plan: Autotitration home setting Cpap ordered (7) Urinary retention: Code(s): R33.9 - Retention of urine, unspecified Status: Acute Assessment and Plan: inability to void post-operatively failed intermittent straight cath Nixon catheter with coude placed Will give Flomax as well Attempt void trial tomorrow Plan Continue with post-operative care Await return of bowel function void trial Subjective Date/time seen: 02/02/23 06:57 Interval history: HPI obtained from chart, This is a pleasant 67-year-old male with type 2 diabetes mellitus, hypertension, and anxiety who presented to the emergency department from Radiology after he was found to have evidence of perforated appendicitis on CT scan. The patient provides the following history. afternoon he has some mild abdominal discomfort after eating but that passed and he felt okay later that day and on Monday. Monday however the abdominal discomfort returned and has become increasingly worse since that time. He describes a sharp and shooting pain diffusely throughout the lower abdomen, worse with movement. Associated symptoms include a temperature up to 101?, nausea, and decreased appetite. He has only had a very small, hard bowel movement within the last few days which is unusual for him. He was sent for an outpatient CT which showed ruptured acute appendicitis with appendicolith with a small amount of extraluminal gas. ED provider spoke with the on-call surgeon at this time they requested he be admitted for IV antibiotics and bowel rest. At the time my evaluation he is feeling a bit better after receiving IV ibuprofen. 02/01: Patient se
[2023-02-02 08:20] LABS: Glucose Point of Care 89 mg/dl (65-105)
[2023-02-02] MEDS: SERTRALINE HCL 50 MG TABLET 150 MG PO (09:02)
[2023-02-02] MEDS: busPIRone HCL 2.5 MG TABLET 7.5 MG PO ×3 (09:02→17:55)
[2023-02-02] MEDS: DOCUSATE SODIUM 100 MG CAPSULE PO ×2 (09:02→20:08)
[2023-02-02] MEDS: TAMSULOSIN HCL 0.4 MG CAPSULE PO (09:03)
[2023-02-02] MEDS: METOPROLOL SUCCINATE EXT REL 25 MG TABCR PO (09:03)
[2023-02-02] MEDS: PANTOPRAZOLE 40 MG TABLET PO (09:03)
[2023-02-02] MEDS: MONTELUKAST SODIUM 10 MG TABLET PO (09:03)
[2023-02-02] MEDS: LORATADINE 10 MG TABLET PO (09:03)
[2023-02-02] MEDS: MELOXICAM 7.5 MG TABLET 15 MG PO (09:03)
[2023-02-02] MEDS: glipiZIDE XL 5 MG TABCR PO (09:03)
[2023-02-02] MEDS: lisinopriL 10 MG TABLET PO (09:03)
[2023-02-02] MEDS: EMPAGLIFLOZIN 25 MG TABLET PO (09:03)
[2023-02-02] MEDS: SODIUM CHLORIDE 0.9% IV 1,000 ML 100 ML IV CONT ×2 (09:04→20:07)
[2023-02-02] MEDS: ENOXAPARIN 40 MG/0.4 ML SYRINGE SUB-Q (09:07)
--- NOTE | 2023-02-02 11:06 | PM.PNGS ---
Progress Note: A&P Assessment and Plan (1) Acute appendicitis: Qualifiers: Acute appendicitis type: with localized peritonitis Appendicitis abscess presence: with abscess Appendicitis gangrene presence: without gangrene Appendicitis perforation presence: with perforation Qualified Code(s): K35.33 - Acute appendicitis with perforation, localized peritonitis, and gangrene, with abscess Code(s): K35.80 - Unspecified acute appendicitis Status: Acute Assessment and Plan: Continue Zosyn. Advance to full liquids. Follow labs and drain output. (2) Urinary retention: Code(s): R33.9 - Retention of urine, unspecified Status: Acute Assessment and Plan: Nixon placed, voiding trial in a day or so. (3) Type 2 diabetes mellitus: Code(s): E11.9 - Type 2 diabetes mellitus without complications Status: Acute (4) Obstructive sleep apnea: Onset Date: 11/2020 Code(s): G47.33 - Obstructive sleep apnea (adult) (pediatric) Status: Acute (5) Essential (primary) hypertension: Code(s): I10 - Essential (primary) hypertension Status: Acute Subjective Subjective Date/Time Seen: 02/02/23 11:06 Interval history: Doing well on POD#1. tolerating clears. No bloating/nausea. Had urinary retention and Nixon placed. Minimal flatus. Pain controlled. No fevers. Exam GI: Inspection: incision (intact with glue) and other (ANDER serosanguinous) GI Palp: Yes Tenderness to palpation present (GI) (RLQ and incisional) Objective Data Vital Signs Vital Signs: Vital Signs - 24 hr 02/01/23 11:15 02/01/23 11:28 02/01/23 11:45 Temperature 36.4 C Pulse Rate 95 96 94 Respiratory Rate 19 21 H 20 Blood Pressure 141/84 H 141/87 H 133/76 Pulse Oximetry 95 95 93 Oxygen Delivery Nasal Cannula Nasal Cannula Oxygen Flow Rate 2 2 Fraction of Inspired Oxygen 02/01/23 12:00 02/01/23 12:30 02/01/23 13:30 Temperature 36.9 C 36.6 C 36.6 C Pulse Rate 94 94 100 Respiratory Rate 19 20 20 Blood Pressure 144/86 H 127/72 130/79 Pulse Oximetry 93 94 95 Oxygen Delivery Oxygen Flow Rate Fraction of Inspired Oxygen 02/01/23 20:00 02/01/23 22:00 02/01/23 22:05 Temperature 35.8 C L Pulse Rate 91 Respiratory Rate 16 Blood Pressure 111/64 Pulse Oximetry 93 85 L 93 Oxygen Delivery Room Air Nasal Cannula Oxygen Flow Rate 2 Fraction of Inspired Oxygen 21 28 02/02/23 00:00 02/02/23 05:30 02/02/23 07:49 Temperature 36.0 C L 36.1 C L Pulse Rate 87 82 Respiratory Rate 16 16 Blood Pressure 112/64 112/65 Pulse Oximetry 93 94 92 Oxygen Delivery Nasal Cannula Oxygen Flow Rate 2 Fraction of Inspired Oxygen 02/02/23 08:00 02/02/23 09:00 Temperature 36.4 C 36.6 C Pulse Rate 80 107 H Respiratory Rate 17 22 H Blood Pressure 118/62 142/70 H Pulse Oximetry 95 97 Oxygen Delivery Oxygen Flow Rate Fraction of Inspired Oxygen Intake/Output Intake/Output: Intake & Output 01/30/23 01/31/23 02/01/23 02/02/23 23:59 23:59 23:59 23:59 Intake Total 1204 5092 2918 Output Total 2215 1255 Balance 1204 2877 1663 Meds/Results Medications: Active Medications Generic Name Dose Route Start Last Admin Trade Name Freq PRN Reason Stop Dose Admin Acetaminophen 650 mg 01/31/23 19:53 Acetaminophen 325 Mg Tablet PO Q6H PRN Mild Pain (1-3) or Fever Buspirone HCl 7.5 mg 02/01/23 09:00 02/02/23 09:02 Buspirone Hcl 2.5 Mg Tablet PO 03/03/23 08:59 7.5 mg TID RUDDY Administration Dextrose 12.5 gm 01/31/23 19:53 Dextrose 50% 25 Gm/50 Ml Syringe IV PUSH PRN PRN Hypoglycemia Protocol Docusate Sodium 100 mg 02/02/23 09:00 02/02/23 09:02 Docusate Sodium 100 Mg Capsule PO 100 mg Q12HR RUDDY Administration Doxepin HCl 100 mg 01/31/23 22:50 02/01/23 20:59 Doxepin Hcl 25 Mg Capsule PO 03/03/23 22:49 100 mg QHS RUDDY Administration Empagliflozin 25 mg 02/01/23 09:00
[2023-02-02 12:20] LABS: Glucose Point of Care 130 mg/dl (65-105)
--- NOTE | 2023-02-02 12:51 | WPDANESPN ---
Anes - Prog Note Post-Op Date/Time: 02/02/23 12:51 Cardiovascular status: normal Respiratory status: normal Airway patency: baseline Mental status: baseline Post-Op hydration status: normal Vital Signs: Last Vital Signs Temp 36.4 C 02/02/23 12:02 Pulse 88 02/02/23 12:02 Resp 17 02/02/23 12:02 BP 105/66 02/02/23 12:02 Pulse Ox 93 02/02/23 12:02 O2 Del Method Nasal Cannula 02/02/23 07:49 O2 Flow Rate 2 02/02/23 07:49 FiO2 28 02/01/23 22:05 Pain Score (VAS): 07/08 I/O: Intake & Output 02/01/23 02/02/23 02/02/23 23:59 07:59 15:59 Intake Total 2812 900 2706 Output Total 1805 1255 Balance 1007 -908 2706 Laboratory Tests 02/02/23 04:50 02/02/23 04:50 02/01/23 02/01/23 02/02/23 17:10 21:45 04:50 WBC 11.8 H RBC 3.41 L Hgb 10.2 L Hct 32.1 L MCV 94.1 MCH 29.9 MCHC 31.8 L RDW 13.6 Plt Count 220 MPV 9.9 Sodium 138 Potassium 4.3 Chloride 106 Carbon Dioxide 23 Anion Gap 9 BUN 16 Creatinine 1.00 Estim Creat Clear Calc 70 Estimated GFR > 60 Glucose 99 POC Capillary Glucose 213 H 161 H Calcium 7.9 L 02/02/23 02/02/23 08:09 12:03 WBC RBC Hgb Hct MCV MCH MCHC RDW Plt Count MPV Sodium Potassium Chloride Carbon Dioxide Anion Gap BUN Creatinine Estim Creat Clear Calc Estimated GFR Glucose POC Capillary Glucose 89 130 H Calcium Microbiology 01/31/23 17:28 Blood Blood Culture - Preliminary 01/31/23 17:28 Blood Blood Culture - Preliminary Post-procedural complaints: none Patient Feedback: Patient satisfied with anesthetic care.
[2023-02-02 16:57] LABS: Glucose Point of Care 84 mg/dl (65-105)
[2023-02-02] MEDS: DOXEPIN HCL 25 MG CAPSULE 100 MG PO (20:08)
[2023-02-02] MEDS: oxyCODONE HCL (*CRX) 5 MG TAB IR PO (20:08)
[2023-02-02] MEDS: MELATONIN 5 MG TABLET 10 MG PO (20:08)
[2023-02-02] MEDS: rOPINIRole HCL 1 MG TABLET 2 MG PO (20:09)
[2023-02-02] MEDS: traZODone HCL 25 MG TABLET PO (20:09)
[2023-02-02] MEDS: FAMOTIDINE 20 MG TABLET PO (20:09)
[2023-02-02] MEDS: GABAPENTIN 400 MG CAPSULE 1200 MG PO (20:09)
[2023-02-02 22:47] LABS: Glucose Point of Care 90 mg/dl (65-105)
[2023-02-03] VITALS (16 sets, daily range): BP systolic 115–159; BP diastolic 66–77; PULSE 80–110; RESP 16–20; TEMP 36.1–36.6; O2SAT 93–100
--- NOTE | 2023-02-03 | ECHO_ITS ---
Patient Info Name: J Carlos Cortes Age: 67 years : 1955 Gender: Male Ht: 68 in Wt: 218 lbs BSA: 2.21 m2 HR: 88 bpm BP: 133 / 77 mmHg Heart Rhythm: Sinus Rhythm Technical Quality: Good Exam Date: 02/03/2023 1:50 PM Exam Location: [facility] Card Pulmonary Patient Status: Inpatient Admit Date: 02/02/2023 Staff Ordering Physician: Nat Santana APRN Sales Receptionist: Tarsha Holden RDCS Attending Provider: Callum Cline MD Referring Physician: Max ALICEA; Exam Type: CA echo doppler color flow Study Info Indications - pulmonary edema, bnp elevated Complete two-dimensional, color flow and Doppler transthoracic echocardiogram is performed. Summary 1. Complete two-dimensional, color flow and Doppler transthoracic echocardiogram is performed. 2. Left ventricular chamber dimension is normal. 3. Ventricular septum is sigmoid shaped. No LVOT obstruction. 4. Left ventricular systolic function is normal, estimated at 65-70%. 5. There is mild concentric increased left ventricular wall thickness. 6. The left ventricular diastolic function is abnormal. 7. E/e' 16 is elevated. 8. There is trace tricuspid valve regurgitation. 9. No pulmonary hypertension, estimated pulmonary arterial systolic pressure is 37 mmHg. 10. There is trivial pericardial effusion. Left Ventricle E/e' 16 is elevated. Ventricular septum is sigmoid shaped. No LVOT obstruction. Left ventricular chamber dimension is normal. Left ventricular systolic function is normal, estimated at 65-70%. There is mild concentric increased left ventricular wall thickness. The left ventricular diastolic function is abnormal. Right Ventricle Right ventricular systolic function is normal and with normal TAPSE 2.5 cm. Right ventricular chamber dimension is normal. Left Atria Left atrial chamber dimension is normal. Right Atria Right atrial chamber dimension is normal. Aortic Valve The aortic valve is trileaflet. There is no aortic valve stenosis. There is no aortic valve regurgitation. Pulmonic Valve There is no pulmonic regurgitation. Mitral Valve There is no mitral valve stenosis. There is no mitral valve regurgitation. Tricuspid Valve There is trace tricuspid valve regurgitation. No pulmonary hypertension, estimated pulmonary arterial systolic pressure is 37 mmHg. Pericardium/Pleural There is trivial pericardial effusion. Inferior Vena Cava Normal inferior vena cava with >50% collapse upon inspiration consistent with normal right atrial pressure, 5 mmHg. Aorta The aortic root size at the sinus of Valsalva is normal. Left Ventricular Outflow Tract Name Value Normal LVOT 2D LVOT Diameter 2.0 cm LVOT Doppler LVOT Peak Gradient 7 mmHg LVOT Mean Gradient 4 mmHg LVOT VTI 21 cm LVOT VTI/AV VTI Ratio 0.7 LVOT Stroke Volume 67 ml LVOT CO 6.3 l/min LVOT CI 2.9 l/min/m2 Pulmonic Valve Name Value Normal ---
[2023-02-03] MEDS: PIPERACILLN/TAZ 3.375GM/NS50ML 3.375 GM/50 ML BAG IVPB ×4 (05:04→23:03)
--- NOTE | 2023-02-03 05:15 | PC.NURSE ---
reviewed and agree with all charting and documentation by rabia Fulton.
[2023-02-03 05:26] LABS: Hematocrit 30.6 % (42.0-52.0); Mean Corpuscular HGB Conc 32.7 g/dl (32-36); Mean Corpuscular Hemoglobin 30.4 pg (26-34); Mean Platelet Volume 9.9 fl (7.4-10.4); Platelet Count Result 233 k/mm3 (150-375); Red Blood Count 3.29 M/mm3 (4.6-6.20); Red Cell Distribution Width 13.4 % (11.5-14.5); White Blood Count 13.8 K/mm3 (4.5-10.0)
[2023-02-03] MEDS: SODIUM CHLORIDE 0.9% IV 1,000 ML 100 ML IV CONT (05:37)
[2023-02-03 05:42] LABS: Anion Gap 7 mmol/L (8-16); Blood Urea Nitrogen 11 mg/dL (9-20); Calcium 7.6 mg/dL (8.4-10.2); Carbon Dioxide 21 mmol/L (22-30); Chloride 105 mmol/L (98-107); Estimated CRCL calculation 78 ml/min; Estimated Glomerular Filt Rate > 60; Glucose 72 mg/dL (65-110); Magnesium 2.2 mg/dL (1.6-2.3); Potassium 3.8 mmol/L (3.4-5.0); Sodium 133 mmol/L (137-145)
--- NOTE | 2023-02-03 06:44 | PM.IMPN ---
Progress Note: A&P Assessment and Plan (1) Acute appendicitis: Qualifiers: Acute appendicitis type: with localized peritonitis Appendicitis abscess presence: with abscess Appendicitis gangrene presence: without gangrene Appendicitis perforation presence: with perforation Qualified Code(s): K35.33 - Acute appendicitis with perforation, localized peritonitis, and gangrene, with abscess Code(s): K35.80 - Unspecified acute appendicitis Status: Acute Assessment and Plan: CT shows acute appendicitis with concerns for perforation Surgery consulted and rec's appreciated Started on IV zosyn POD 1 for lap appy with drain placement Continue with post-operative care. Advance diet per surgery. Pain medications and bowel regimen ordered Patient is up to chair for meals IS ordered, + Pep therapy ANDER drain managed by surgery SCDs and Lovenox for DVT prophylaxis (2) Type 2 diabetes mellitus: Code(s): E11.9 - Type 2 diabetes mellitus without complications Status: Acute Assessment and Plan: Hgb A1C 01/12/23 was 7.0 On empagliflozin and glipizide Ac/Hs accu checks SSI as needed (3) Essential (primary) hypertension: Code(s): I10 - Essential (primary) hypertension Status: Acute Assessment and Plan: Blood pressures reviewed and are stable SBP 130s-140s Home agents were resumed at admission (4) Mixed hyperlipidemia: Code(s): E78.2 - Mixed hyperlipidemia Status: Acute Assessment and Plan: Lipid panel from 08/2022: Triglycerides 263 Total cholesterol 180 LDL 108 HDL 34 Looks like Atorvastatin was initially prescribed in 04/2022 but it does not appear to be an active med. Will discuss with patient today and re-start. Patient was under the understanding he was still taking this medication but it is not listed as an active home medication and looks like it was last prescribed in 04/2022. Will re-start. (5) Depression with anxiety: Code(s): F41.8 - Other specified anxiety disorders Status: Acute Assessment and Plan: Stable Continue home agents (6) Obstructive sleep apnea: Onset Date: 11/2020 Code(s): G47.33 - Obstructive sleep apnea (adult) (pediatric) Status: Acute Assessment and Plan: Autotitration home setting Cpap ordered (7) Urinary retention: Code(s): R33.9 - Retention of urine, unspecified Status: Acute Assessment and Plan: inability to void post-operatively failed intermittent straight cath Nixon catheter with coude placed Will give Flomax as well Attempt void trial tomorrow 02/03 void trial successful and patient is voiding spontaneously Plan Continue with post-operative care Await return of bowel function XR to assess for atelectasis in setting of increasing WBC--shows bilateral pleural effusions and mild pulmonary edema. Now on full liquid diet. IVF stopped. Will give IV lasix x 2 doses today. Feeding:Full liquid diet Analgesia:Tylenol and oxy Thromboembolic prophylaxis: lovenox Ulcer prophylaxis: H2 elsie Glycemic control: N/a Bowel regimen: colace Lines: PIV Antibiotics:Zosyn, may need to escalate Subjective Date/time seen: 02/03/23 06:44 Interval history: HPI obtained from chart, This is a pleasant 67-year-old male with type 2 diabetes mellitus, hypertension, and anxiety who presented to the emergency department from Radiology after he was found to have evidence of perforated appendicitis on CT scan. The patient provides the following history. afternoon he has some mild abdominal discomfort after eating but that passed and he felt okay later that day and on Monday. Monday however the abdominal discomfort returned and has become increasingly worse since that time. He describes a sharp and shooting pain diffusely throughout the lower abdomen, worse with movement. Associated symptoms include a temperature up to 101?, nausea, an
[2023-02-03 08:13] LABS: Glucose Point of Care 76 mg/dl (65-105)
[2023-02-03] MEDS: busPIRone HCL 2.5 MG TABLET 7.5 MG PO ×3 (08:36→16:59)
[2023-02-03] MEDS: ATORVASTATIN 40 MG TABLET PO (08:36)
[2023-02-03] MEDS: lisinopriL 10 MG TABLET PO (08:38)
[2023-02-03] MEDS: LORATADINE 10 MG TABLET PO (08:38)
[2023-02-03] MEDS: ENOXAPARIN 40 MG/0.4 ML SYRINGE SUB-Q (08:38)
[2023-02-03] MEDS: MELOXICAM 7.5 MG TABLET 15 MG PO (08:38)
[2023-02-03] MEDS: SERTRALINE HCL 50 MG TABLET 150 MG PO (08:39)
[2023-02-03] MEDS: METOPROLOL SUCCINATE EXT REL 25 MG TABCR PO (08:39)
[2023-02-03] MEDS: PANTOPRAZOLE 40 MG TABLET PO (08:39)
[2023-02-03] MEDS: MONTELUKAST SODIUM 10 MG TABLET PO (08:39)
[2023-02-03] MEDS: TAMSULOSIN HCL 0.4 MG CAPSULE PO (08:40)
[2023-02-03] MEDS: ALBUTEROL SULFATE NEB 2.5 MG/3 ML INH INHALATION ×3 (09:27→20:28)
[2023-02-03] MEDS: oxyCODONE HCL (*CRX) 5 MG TAB IR 10 MG PO (09:53)
[2023-02-03 10:48] LABS: NT Pro B Type Natriuretic Pept 1120 pg/mL (19.9-100)
--- NOTE | 2023-02-03 12:01 | PM.PNGS ---
Progress Note: A&P Assessment and Plan (1) Acute appendicitis: Qualifiers: Acute appendicitis type: with localized peritonitis Appendicitis abscess presence: with abscess Appendicitis gangrene presence: without gangrene Appendicitis perforation presence: with perforation Qualified Code(s): K35.33 - Acute appendicitis with perforation, localized peritonitis, and gangrene, with abscess Code(s): K35.80 - Unspecified acute appendicitis Status: Acute Assessment and Plan: Continue Zosyn. Advance to regular diabetic diet. Follow labs and drain output. (2) Urinary retention: Code(s): R33.9 - Retention of urine, unspecified Status: Acute Assessment and Plan: Urinating without difficulty today (3) Type 2 diabetes mellitus: Code(s): E11.9 - Type 2 diabetes mellitus without complications Status: Acute (4) Obstructive sleep apnea: Onset Date: 11/2020 Code(s): G47.33 - Obstructive sleep apnea (adult) (pediatric) Status: Acute (5) Essential (primary) hypertension: Code(s): I10 - Essential (primary) hypertension Status: Acute Subjective Subjective Date/Time Seen: 02/03/23 12:01 Interval history: Slowly improving. Tolerating full liquids. Bowels moving. Pain still in lower abdomen but improving. No fevers. Exam GI: Inspection: incision (intact with glue) and other (ANDER serosanguinous) GI Palp: Yes Tenderness to palpation present (GI) (RLQ and incisional) Objective Data Vital Signs Vital Signs: Vital Signs - 24 hr 02/02/23 12:02 02/02/23 16:00 02/02/23 20:51 Temperature 36.4 C 36.4 C Pulse Rate 88 84 85 Respiratory Rate 17 17 20 Blood Pressure 105/66 110/62 Pulse Oximetry 93 93 90 Oxygen Delivery Nasal Cannula Oxygen Flow Rate 3 Fraction of Inspired Oxygen 32 02/02/23 20:30 02/03/23 00:34 02/03/23 04:52 Temperature 36.2 C L 36.1 C L 36.2 C L Pulse Rate 88 99 84 Respiratory Rate 16 16 18 Blood Pressure 121/67 133/73 115/66 Pulse Oximetry 93 93 97 Oxygen Delivery Oxygen Flow Rate Fraction of Inspired Oxygen 02/03/23 08:21 02/03/23 08:39 02/03/23 09:29 Temperature Pulse Rate 83 83 86 Respiratory Rate 18 Blood Pressure 133/77 Pulse Oximetry Oxygen Delivery Oxygen Flow Rate Fraction of Inspired Oxygen 02/03/23 09:32 02/03/23 09:38 02/03/23 08:34 Temperature Pulse Rate 86 88 Respiratory Rate 18 18 Blood Pressure Pulse Oximetry 98 98 Oxygen Delivery Nasal Cannula Nasal Cannula Oxygen Flow Rate 3 2 Fraction of Inspired Oxygen Intake/Output Intake/Output: Intake & Output 01/31/23 02/01/23 02/02/23 02/03/23 23:59 23:59 23:59 23:59 Intake Total 1204 5092 5778 1790 Output Total 5 2004 30 Balance 1204 2167 8973 1760 Meds/Results Medications: Active Medications Generic Name Dose Route Start Last Admin Trade Name Freq PRN Reason Stop Dose Admin Acetaminophen 650 mg 01/31/23 19:53 Acetaminophen 325 Mg Tablet PO Q6H PRN Mild Pain (1-3) or Fever Albuterol 2.5 mg 02/03/23 08:00 02/03/23 09:27 Albuterol Sulfate Neb 2.5 Mg/3 Ml Inh INHALATION 2.5 mg Q6HRT RUDDY Administration Atorvastatin Calcium 40 mg 02/03/23 09:00 02/03/23 08:36 Atorvastatin 40 Mg Tablet PO 40 mg DAILY RUDDY Administration Buspirone HCl 7.5 mg 02/01/23 09:00 02/03/23 08:36 Buspirone Hcl 2.5 Mg Tablet PO 03/03/23 08:59 7.5 mg TID RUDDY Administration Dextrose 12.5 gm 01/31/23 19:53 Dextrose 50% 25 Gm/50 Ml Syringe IV PUSH PRN PRN Hypoglycemia Protocol Docusate Sodium 100 mg 02/02/23 09:00 02/03/23 08:37 Docusate Sodium 100 Mg Capsule PO Not Given Q12HR RUDDY Doxepin HCl 100 mg 01/31/23 22:50 02/02/23 20:08 Doxepin Hcl 25 Mg Capsule PO 03/03/23 22:49 100 mg QHS RUDDY Administration Empagliflozin 25 mg 02/01/23 09:00 02/03/23 10:22 Empagliflozin 25 Mg Tablet PO 03/03/23 08:
[2023-02-03 12:13] LABS: Glucose Point of Care 96 mg/dl (65-105)
[2023-02-03] MEDS: FUROSEMIDE INJ 40 MG/4 ML VIAL IV PUSH (13:08)
[2023-02-03 16:54] LABS: Glucose Point of Care 116 mg/dl (65-105)
[2023-02-03] MEDS: GABAPENTIN 400 MG CAPSULE 1200 MG PO (20:11)
[2023-02-03] MEDS: rOPINIRole HCL 1 MG TABLET 2 MG PO (20:11)
[2023-02-03] MEDS: DOCUSATE SODIUM 100 MG CAPSULE PO (20:11)
[2023-02-03] MEDS: FAMOTIDINE 20 MG TABLET PO (20:11)
[2023-02-03] MEDS: traZODone HCL 25 MG TABLET PO (20:11)
[2023-02-03] MEDS: DOXEPIN HCL 25 MG CAPSULE 100 MG PO (20:11)
[2023-02-03] MEDS: MELATONIN 5 MG TABLET 10 MG PO (20:12)
[2023-02-03 20:47] LABS: Glucose Point of Care 135 mg/dl (65-105)
[2023-02-04] VITALS (13 sets, daily range): BP systolic 135–165; BP diastolic 77–83; PULSE 83–106; RESP 16–28; TEMP 36.2–37; O2SAT 94–97
[2023-02-04] MEDS: ALBUTEROL SULFATE NEB 2.5 MG/3 ML INH INHALATION ×3 (01:18→14:05)
[2023-02-04] MEDS: PIPERACILLN/TAZ 3.375GM/NS50ML 3.375 GM/50 ML BAG IVPB (05:06)
[2023-02-04 05:13] LABS: Hematocrit 30.6 % (42.0-52.0); Hemoglobin 10.1 g/dL (14.0-18.0); Mean Corpuscular Hemoglobin 30.2 pg (26-34); Mean Corpuscular Volume 91.6 fl (80-100); Mean Platelet Volume 9.9 fl (7.4-10.4); Platelet Count Result 246 k/mm3 (150-375); Red Blood Count 3.34 M/mm3 (4.6-6.20); Red Cell Distribution Width 13.3 % (11.5-14.5); White Blood Count 11.8 K/mm3 (4.5-10.0)
[2023-02-04 05:24] LABS: Anion Gap 9 mmol/L (8-16); Blood Urea Nitrogen 9 mg/dL (9-20); Calcium 8.1 mg/dL (8.4-10.2); Carbon Dioxide 24 mmol/L (22-30); Chloride 102 mmol/L (98-107); Estimated CRCL calculation 87 ml/min; Estimated Glomerular Filt Rate > 60; Glucose 114 mg/dL (65-110); Potassium 3.2 mmol/L (3.4-5.0); Sodium 135 mmol/L (137-145)
--- NOTE | 2023-02-04 06:57 | PM.IMPN ---
Progress Note: A&P Assessment and Plan (1) Acute appendicitis: Qualifiers: Acute appendicitis type: with localized peritonitis Appendicitis abscess presence: with abscess Appendicitis gangrene presence: without gangrene Appendicitis perforation presence: with perforation Qualified Code(s): K35.33 - Acute appendicitis with perforation, localized peritonitis, and gangrene, with abscess Code(s): K35.80 - Unspecified acute appendicitis Status: Acute Assessment and Plan: CT shows acute appendicitis with concerns for perforation Surgery consulted and rec's appreciated Started on IV zosyn. He is POD 3 from lap appy. Anticipate a total of 5-7 days of antibiotics after source control. Will de-escalate if okay with surgery. POD 3 for lap appy with drain placement DM diet Pain medications and bowel regimen ordered Patient is up to chair for meals IS ordered, + Pep therapy ANDER drain managed by surgery SCDs and Lovenox for DVT prophylaxis (2) Type 2 diabetes mellitus: Code(s): E11.9 - Type 2 diabetes mellitus without complications Status: Acute Assessment and Plan: Hgb A1C 01/12/23 was 7.0 On empagliflozin and glipizide Ac/Hs accu checks SSI as needed (3) Essential (primary) hypertension: Code(s): I10 - Essential (primary) hypertension Status: Acute Assessment and Plan: Blood pressures reviewed and are stable SBP 130s-140s Home agents were resumed at admission (4) Mixed hyperlipidemia: Code(s): E78.2 - Mixed hyperlipidemia Status: Acute Assessment and Plan: Lipid panel from 08/2022: Triglycerides 263 Total cholesterol 180 LDL 108 HDL 34 Looks like Atorvastatin was initially prescribed in 04/2022 but it does not appear to be an active med. Will discuss with patient today and re-start. Patient was under the understanding he was still taking this medication but it is not listed as an active home medication and looks like it was last prescribed in 04/2022. Will re-start. (5) Depression with anxiety: Code(s): F41.8 - Other specified anxiety disorders Status: Acute Assessment and Plan: Stable Continue home agents Has anxiety surrounding his discharge home. (6) Obstructive sleep apnea: Onset Date: 11/2020 Code(s): G47.33 - Obstructive sleep apnea (adult) (pediatric) Status: Acute Assessment and Plan: Autotitration home setting Cpap ordered (7) Urinary retention: Code(s): R33.9 - Retention of urine, unspecified Status: Acute Assessment and Plan: inability to void post-operatively failed intermittent straight cath Nixon catheter with coude placed Will give Flomax as well Attempt void trial tomorrow 02/03 void trial successful and patient is voiding spontaneously Plan Continue with post-operative care BM 02/03 XR to assess for atelectasis in setting of increasing WBC--shows bilateral pleural effusions and mild pulmonary edema. Now on full liquid diet. IVF stopped. Will give IV lasix x 2 doses today 02/02. WBC improves, no longer on oxygen. Pt had some concerns about his mobility since surgery. PT/OT consulted and they feel he is safe for home and does not need home health for therapy services. His is POD 3 from [facility]. Anticipate a total of 5-7 days of antibiotics after source control. Will de-escalate if okay with surgery. Possibly d/c today if okay with surgery? Feeding: DM diet Analgesia:Tylenol and oxy Thromboembolic prophylaxis: Lovenox Ulcer prophylaxis: H2 elsie Glycemic control: N/a Bowel regimen: Colace Lines: PIV Antibiotics:Zosyn Subjective Date/time seen: 02/04/23 06:57 Interval history: HPI obtained from chart, This is a pleasant 67-year-old male with type 2 diabetes mellitus, hypertension, and anxiety who presented to the emergency department from Radiology after he was found to have evidence of perforated appendicitis on
[2023-02-04] MEDS: ATORVASTATIN 40 MG TABLET PO (08:49)
[2023-02-04] MEDS: POTASSIUM CHLORIDE 20 MEQ ER TABLET 40 MEQ PO (08:49)
[2023-02-04] MEDS: busPIRone HCL 2.5 MG TABLET 7.5 MG PO ×3 (08:50→17:12)
[2023-02-04] MEDS: lisinopriL 10 MG TABLET PO (08:51)
[2023-02-04] MEDS: ENOXAPARIN 40 MG/0.4 ML SYRINGE SUB-Q (08:51)
[2023-02-04] MEDS: DOCUSATE SODIUM 100 MG CAPSULE PO (08:51)
[2023-02-04] MEDS: MELOXICAM 7.5 MG TABLET 15 MG PO (08:52)
[2023-02-04] MEDS: LORATADINE 10 MG TABLET PO (08:52)
[2023-02-04] MEDS: METOPROLOL SUCCINATE EXT REL 25 MG TABCR PO (08:52)
[2023-02-04] MEDS: MONTELUKAST SODIUM 10 MG TABLET PO (08:52)
[2023-02-04] MEDS: SERTRALINE HCL 50 MG TABLET 150 MG PO (08:53)
[2023-02-04] MEDS: PANTOPRAZOLE 40 MG TABLET PO (08:53)
[2023-02-04] MEDS: TAMSULOSIN HCL 0.4 MG CAPSULE PO (08:53)
[2023-02-04 08:57] LABS: Glucose Point of Care 119 mg/dl (65-105)
[2023-02-04 11:55] LABS: Glucose Point of Care 117 mg/dl (65-105)
--- NOTE | 2023-02-04 13:24 | PM.PNGS ---
Progress Note: A&P Assessment and Plan (1) Acute appendicitis: Qualifiers: Acute appendicitis type: with localized peritonitis Appendicitis abscess presence: with abscess Appendicitis gangrene presence: without gangrene Appendicitis perforation presence: with perforation Qualified Code(s): K35.33 - Acute appendicitis with perforation, localized peritonitis, and gangrene, with abscess Code(s): K35.80 - Unspecified acute appendicitis Status: Acute Assessment and Plan: Patient can be transitioned to oral antibiotics. We will plan on Cipro and Flagyl. He can be discharged from the hospital today with the drain in place given high output serous appearance of the fluid. He can return to the office next week to remove the drain. Teach drain care to before discharge. Subjective Subjective Date/Time Seen: 02/04/23 13:24 Interval history: Patient is doing well today. Tolerating regular diet. No fever. White blood cell count is down to 11,000. Abdominal drain output is serous but output is still over 50cc per day. Exam GI: Other: Abdomen is soft and nondistended. Laparoscopic port site incisions are well healed. No redness or drainage. ANDER drain output is nonpurulent and serous. Volume of output is [id number] per day. Objective Data Vital Signs Vital Signs: Vital Signs - 24 hr 02/03/23 14:22 02/03/23 14:31 02/03/23 16:00 Temperature 36.4 C Pulse Rate 98 99 Respiratory Rate 18 18 18 Blood Pressure 159/76 H Pulse Oximetry 100 Oxygen Delivery Oxygen Flow Rate 02/03/23 19:22 02/03/23 20:30 02/03/23 20:31 Temperature 36.6 C Pulse Rate 92 108 H Respiratory Rate 20 18 Blood Pressure 115/70 Pulse Oximetry 97 95 Oxygen Delivery Nasal Cannula Oxygen Flow Rate 2 02/03/23 20:41 02/04/23 00:00 02/04/23 01:19 Temperature 36.6 C Pulse Rate 110 H 89 83 Respiratory Rate 18 16 18 Blood Pressure 135/80 Pulse Oximetry 94 Oxygen Delivery Oxygen Flow Rate 02/04/23 04:00 02/04/23 08:06 02/04/23 08:08 Temperature 37.0 C Pulse Rate 91 87 Respiratory Rate 16 18 Blood Pressure 165/83 H Pulse Oximetry 96 97 Oxygen Delivery Nasal Cannula Oxygen Flow Rate 2 02/04/23 08:21 02/04/23 08:33 02/04/23 08:52 Temperature Pulse Rate 85 100 Respiratory Rate 18 Blood Pressure Pulse Oximetry 94 Oxygen Delivery Nasal Cannula Oxygen Flow Rate 1 02/04/23 08:54 02/04/23 08:40 02/04/23 10:28 Temperature 36.2 C L Pulse Rate 92 Respiratory Rate 28 H Blood Pressure 136/79 Pulse Oximetry 94 95 Oxygen Delivery Room Air Room Air Oxygen Flow Rate 02/04/23 09:02 Temperature Pulse Rate Respiratory Rate Blood Pressure Pulse Oximetry Oxygen Delivery Room Air Oxygen Flow Rate Intake/Output Intake/Output: Intake & Output 02/01/23 02/02/23 02/03/23 02/04/23 23:59 23:59 23:59 23:59 Intake Total 1247 7610 4486 93 Output Total 4260 7789 75 25 Balance 2872 5514 1571 710 Meds/Results Medications: Active Medications Generic Name Dose Route Start Last Admin Trade Name Freq PRN Reason Stop Dose Admin Acetaminophen 650 mg 01/31/23 19:53 Acetaminophen 325 Mg Tablet PO Q6H PRN Mild Pain (1-3) or Fever Albuterol 2.5 mg 02/03/23 08:00 02/04/23 08:05 Albuterol Sulfate Neb 2.5 Mg/3 Ml Inh INHALATION 2.5 mg Q6HRT RUDDY Administration Atorvastatin Calcium 40 mg 02/03/23 09:00 02/04/23 08:49 Atorvastatin 40 Mg Tablet PO 40 mg DAILY RUDDY Administration Buspirone HCl 7.5 mg 02/01/23 09:00 02/04/23 12:09 Buspirone Hcl 2.5 Mg Tablet PO 03/03/23 08:59 7.5 mg TID RUDDY Administration Ciprofloxacin 500 mg 02/04/23 21:00 Ciprofloxacin 500 Mg Tab PO Q12HR RUDDY Dextrose 12.5 gm 01/31/23 19:53 Dextrose 50% 25 Gm/50 Ml Syringe IV PUSH PRN PRN Hypoglycemia Protocol Docusate Sodium 100 mg 02/02/23 09:00 02/04/23 08:51 D
--- NOTE | 2023-02-04 13:46 | PM.DS ---
DS: Admitting Diagnosis Discharge Date 02/04/23 Admitting Diagnosis acute appendicitis with perforation DS: Discharge Diagnosis Discharge Diagnosis (1) Acute appendicitis: Qualifiers: Acute appendicitis type: with localized peritonitis Appendicitis abscess presence: with abscess Appendicitis gangrene presence: without gangrene Appendicitis perforation presence: with perforation Qualified Code(s): K35.33 - Acute appendicitis with perforation, localized peritonitis, and gangrene, with abscess Code(s): K35.80 - Unspecified acute appendicitis Status: Acute Assessment and Plan: CT shows acute appendicitis with concerns for perforation Surgery consulted and rec's appreciated Started on IV zosyn. He is POD 3 from lap appy. Anticipate a total of 5-7 days of antibiotics after source control. Will de-escalate if okay with surgery. POD 3 for lap appy with drain placement DM diet Pain medications and bowel regimen ordered Patient is up to chair for meals IS ordered, + Pep therapy ANDER drain managed by surgery SCDs and Lovenox for DVT prophylaxis (2) Type 2 diabetes mellitus: Code(s): E11.9 - Type 2 diabetes mellitus without complications Status: Acute Assessment and Plan: Hgb A1C 01/12/23 was 7.0 On empagliflozin and glipizide Ac/Hs accu checks SSI as needed (3) Essential (primary) hypertension: Code(s): I10 - Essential (primary) hypertension Status: Acute Assessment and Plan: Blood pressures reviewed and are stable SBP 130s-140s Home agents were resumed at admission (4) Mixed hyperlipidemia: Code(s): E78.2 - Mixed hyperlipidemia Status: Acute Assessment and Plan: Lipid panel from 08/2022: Triglycerides 263 Total cholesterol 180 LDL 108 HDL 34 Looks like Atorvastatin was initially prescribed in 04/2022 but it does not appear to be an active med. Will discuss with patient today and re-start. Patient was under the understanding he was still taking this medication but it is not listed as an active home medication and looks like it was last prescribed in 04/2022. Will re-start. (5) Depression with anxiety: Code(s): F41.8 - Other specified anxiety disorders Status: Acute Assessment and Plan: Stable Continue home agents Has anxiety surrounding his discharge home. (6) Obstructive sleep apnea: Onset Date: 11/2020 Code(s): G47.33 - Obstructive sleep apnea (adult) (pediatric) Status: Acute Assessment and Plan: Autotitration home setting Cpap ordered (7) Urinary retention: Code(s): R33.9 - Retention of urine, unspecified Status: Acute Assessment and Plan: inability to void post-operatively failed intermittent straight cath Nixon catheter with coude placed Will give Flomax as well Attempt void trial tomorrow 02/03 void trial successful and patient is voiding spontaneously Plan Continue with post-operative care BM 02/03 XR to assess for atelectasis in setting of increasing WBC--shows bilateral pleural effusions and mild pulmonary edema. Now on full liquid diet. IVF stopped. Will give IV lasix x 2 doses today 02/02. WBC improves, no longer on oxygen. Pt had some concerns about his mobility since surgery. PT/OT consulted and they feel he is safe for home and does not need home health for therapy services. His is POD 3 from [facility]. Anticipate a total of 5-7 days of antibiotics after source control. Will de-escalate if okay with surgery. Possibly d/c today if okay with surgery? Feeding: DM diet Analgesia:Tylenol and oxy Thromboembolic prophylaxis: Lovenox Ulcer prophylaxis: H2 elsie Glycemic control: N/a Bowel regimen: Colace Lines: PIV Antibiotics:Zosyn DS: Summary Hospital Course Hospital Course: HPI obtained from chart, This is a pleasant 67-year-old male with type 2 diabetes mellitus, hypertension, and anxiety who presented to the emergen
[2023-02-04] MEDS: metroNIDAZOLE 250 MG TABLET 500 MG PO (15:52)
[2023-02-04 16:51] LABS: Glucose Point of Care 149 mg/dl (65-105)
== END 2023-02-04 17:30 | disposition home or self-care (01) | DRG 340 ==
LOC: ANHED 18:24 → ANH2MED 20:41
PROVIDERS: Physician Assistant; Surgery; Admitting Provider Hospitalist; Emergency Provider Physician Assistant; PCP Family Medicine; Visit Provider Nurse Practitioner Acute Care
PROC: 0DTJ4ZZ Resection of Appendix, Percutaneous Endoscopic Approach (ICD-10-PCS; CPT 44970; principal; 2023-02-01 09:30)
DX: K35.33 Acute appendicitis with perforation, localized peritonitis, and gangrene, with abscess (principal); K38.1 Appendicular concretions; E11.9 Type 2 diabetes mellitus without complications; I10 Essential (primary) hypertension; E78.2 Mixed hyperlipidemia; F41.8 Other specified anxiety disorders; G47.33 Obstructive sleep apnea (adult) (pediatric); R33.9 Retention of urine, unspecified; G25.81 Restless legs syndrome; E66.9 Obesity, unspecified; Z68.33 Body mass index [BMI] 33.0-33.9, adult
CPT/HCPCS: 36415; 71045; 74177; 80048; 80053; 81001; 82948; 83605; 83690; 83735; 83880; 85025; 85027; 87040; 88304; 93306; 94640; 94667; 96361; 96365; 96367; 97161; 97165; 99285; A9270; G0378; J0330; J1100; J1170; J1650; J1741; J1815; J1940; J2250; J2405; J2543; J2704; J3010; J7030; J7120; Q9967

== ENCOUNTER 2023-05-16 15:22 | Outpatient (CLI) | payer MEDICARE, SELFPAY ==
[2023-05-16 15:48] LABS: Basophils Percent Auto 0.4 % (0.2-1.2); Eosinophils Absolute Auto 0.1 K/mm3 (0-0.3); Eosinophils Percent Auto 0.8 % (0-4.4); Hematocrit 47.2 % (42.0-52.0); Hemoglobin 15.6 g/dL (14.0-18.0); Immature Granulocyte Absolute 0.03 K/mm3 (0.00-0.031); Immature Granulocyte Percent A 0.3 % (0-0.5); Lymphocytes Absolute Auto 2.39 K/mm3 (0.9-3.2); Lymphocytes Percent Auto 26.1 % (18.3-44.2); Mean Corpuscular HGB Conc 33.1 g/dl (32-36); Mean Corpuscular Hemoglobin 28.8 pg (26-34); Mean Corpuscular Volume 87.2 fl (80-100); Mean Platelet Volume 9.4 fl (7.4-10.4); Monocytes Absolute Auto 0.6 K/mm3 (0.1-0.6); Neutrophils Absolute Auto 6.1 K/mm3 (1.3-6.7); Neutrophils Percent Auto 66.4 % (45.5-73.1); Platelet Count Result 231 k/mm3 (150-375); Red Blood Count 5.41 M/mm3 (4.6-6.20); Red Cell Distribution Width 13.4 % (11.5-14.5); White Blood Count 9.1 K/mm3 (4.5-10.0)
[2023-05-16 16:05] LABS: Alanine Aminotransferase 52 U/L (6-50); Albumin Level 4.9 g/dL (3.5-5.1); Alkaline Phosphatase 84 U/L (38-126); Anion Gap 13 mmol/L (8-16); Aspartate Amino Transferase 36 U/L (17-59); Bilirubin,Total 0.6 mg/dL (0.2-1.3); Blood Urea Nitrogen 15 mg/dL (9-20); Calcium 9.8 mg/dL (8.4-10.2); Carbon Dioxide 22 mmol/L (22-30); Chloride 105 mmol/L (98-107); Estimated Glomerular Filt Rate > 60; Glucose 116 mg/dL (65-110); Potassium 4.1 mmol/L (3.4-5.0); Sodium 140 mmol/L (137-145)
[2023-05-16 16:06] LABS: D Dimer 0.28 ug/mL (<0.48)
== END 2023-05-16 15:23 | disposition home or self-care (01) ==
LOC: ANHLAB 15:28
PROVIDERS: PCP Family Medicine; Visit Provider Physician Assistant
DX: E11.9 Type 2 diabetes mellitus without complications (principal); R00.0 Tachycardia, unspecified
CPT/HCPCS: 36415; 80053; 84443; 85025; 85380

== ENCOUNTER 2023-06-07 07:47 | Outpatient (CLI) | payer MEDICARE, SELFPAY ==
--- NOTE | 2023-06-07 08:01 | ECHO_ITS ---
Patient Info Name: J Carlos Cortes Age: 67 years : 1955 Gender: Male Ht: 69 in Wt: 214 lbs BSA: 2.20 m2 HR: 78 bpm BP: 152 / 102 mmHg Technical Quality: Fair Exam Date: 06/07/2023 8:09 AM Exam Location: Echo Lab Patient Status: Outpatient Admit Date: 06/07/2023 Staff Ordering Physician: Susan Fabian PA-C Attending Provider: Susan Fabian PA-C Referring Physician: Rui VELIZ; Exam Type: CA echo doppler color flow Study Info Indications I10 - Essential (primary) hypertension Complete two-dimensional, color flow and Doppler transthoracic echocardiogram is performed. Summary 1. Complete two-dimensional, color flow and Doppler transthoracic echocardiogram is performed. 2. Left ventricular chamber dimension is normal. 3. Left ventricular systolic function is normal, estimated at 65-70%. 4. There is moderate concentric increased left ventricular wall thickness. 5. The left ventricular diastolic function is abnormal. 6. E/e' 11 is mildly elevated. 7. Left atrial chamber dimension is mildly enlarged. 8. There is mild aortic valve sclerosis. 9. There is mild aortic valve regurgitation. 10. There is trace tricuspid valve regurgitation. 11. There is trace pulmonic regurgitation. Left Ventricle E/e' 11 is mildly elevated. Left ventricular chamber dimension is normal. Left ventricular systolic function is normal, estimated at 65-70%. There is moderate concentric increased left ventricular wall thickness. The left ventricular diastolic function is abnormal. Right Ventricle Right ventricular chamber dimension is normal. Right ventricular systolic function is normal. Left Atria Left atrial chamber dimension is mildly enlarged. Right Atria Right atrial chamber dimension is normal. Aortic Valve The aortic valve is trileaflet. There is mild aortic valve sclerosis. There is no aortic valve stenosis. There is mild aortic valve regurgitation. Pulmonic Valve There is trace pulmonic regurgitation. Mitral Valve There is no mitral valve stenosis. There is no mitral valve regurgitation. Tricuspid Valve There is trace tricuspid valve regurgitation. RVSP is not calculated due to an inadequate TR jet. Pericardium/Pleural There is no pericardial effusion. Inferior Vena Cava Normal inferior vena cava with >50% collapse upon inspiration consistent with normal right atrial pressure, 5 mmHg. Aorta The aortic root size at the sinus of Valsalva is normal. Left Ventricular Outflow Tract Name Value Normal LVOT 2D LVOT Diameter 2.0 cm LVOT Doppler LVOT Peak Gradient 4 mmHg LVOT Mean Gradient 2 mmHg LVOT VTI 20 cm LVOT VTI/AV VTI Ratio 0.7 LVOT Stroke Volume 61 ml LVOT CO 4.8 l/min LVOT CI 2.2 l/min/m2 Pulmonic Valve Name Value Normal PV Doppler
== END 2023-06-07 07:48 | disposition home or self-care (01) ==
PROVIDERS: PCP Family Medicine; Visit Provider Physician Assistant
DX: I10 Essential (primary) hypertension (principal); I35.1 Nonrheumatic aortic (valve) insufficiency
CPT/HCPCS: 93306